=== PATIENT | female | born 1945 | race Caucasian/White ===

== ENCOUNTER 2024-01-16 07:05 | Inpatient (IN) | payer MEDICARE, SELFPAY ==
[2024-01-16] VITALS (13 sets, daily range): BP systolic 106–145; BP diastolic 53–91; PULSE 75–90; O2SAT 99; BMI 29.6; BMI 28.2
--- NOTE | 2024-01-16 05:02 | ED.GENMED ---
History of Present Illness
General
Chief Complaint: Abdominal Symptoms
Source: patient and spouse
Exam Limitations: none
Time Seen by Provider: 01/16/24 04:51
Nursing documentation reviewed up to this point in time: agreed with
Travel History
Have you traveled to any high risk areas for coronavirus over the past 14 days?: No
Have you had any contact with someone who has COVID-19?: No
Do you have any symptoms of coronavirus? Fever > 100 degrees, chills, cough, shortness of breath, sore throat, loss of taste or smell, muscle aches, or headache?: No
History of Present Illness
History of Present Illness:
79-year-old female A-fib diabetes presents with diarrhea decreased p.o. intake 10 pound weight loss has been sick for 7 to 10 days travel to [facility] was on a safari with [place]-vomited x 2, mild lower abdominal crampiness, had
a tuna sandwich and some soup yesterday and got sick she had a x 2, no one else on her trip was sick by her report, patient initially thought that her diarrhea was due to
Past History
Past History
ED Past Medical History: CHF, GERD, HTN, Hypercholesterolemia and Other
ED Past Surgical History: Cardiac, , Gynecological and Other
Social History
Tobacco: Former smoker
Alcohol: Occasional
Drug: None
Personal:
Living: with family
Family History
Family History: Diabetes
Review of Systems
Review of Systems
All Other Systems: Not applicable
Constitutional: Reports weight loss and fatigue; Denies fever
EENT: Reports no symptoms
Respiratory: Reports no symptoms
ABD/GI: Reports abdominal pain, nausea, vomiting and diarrhea; Denies bloody stools or black stools
: Reports no symptoms
Skin: Reports no symptoms
Neurological: Reports dizzy and weakness
Phy Exam
Physical Exam
Physical Exam:
Physical Exam
General: 79-year-old female nontoxic stable vital signs
Neck: Lips are dry
Heart: Regular
Lungs: no acute respiratory distress. clear bilaterally
Abdomen: Mild lower abdominal tenderness no guarding or rebound
Neuro: alert and oriented. no focal neurological deficits
Skin: no rash
Psychiatric: well kept. interactive and cooperative
Extremities: no edema.
Course
Orders/Labs/Results
Orders:
Orders
01/16/24 04:52
IV Insert/Care/Rem.- Treatment PRN
Ova & Parasites Giardia/Crypto AG [Giardia/Cryptosporidium Ag] Urgent
SHARI Source: Feces/Stool
Specimen Description:
STOOL [C difficile Antigen & Toxins] Urgent
SHARI Source: Feces/Stool
Specimen Description:
Stool Culture Urgent
SHARI Source: Feces/Stool
Specimen Description:
0.9% Sodium Chloride 1000 ml [Nss] 1,000 ml IV BOLUS
01/16/24 04:57
Complete Blood Count/With Diff Urgent
Comprehensive Metabolic Panel Urgent
01/16/24 05:37
0.9% Sodium Chloride 1000 ml [Nss] 1,000 ml IV BOLUS
Potassium Chloride [KCl] 40 meq PO NOW STA
01/16/24 05:53
Add On- LAB Urgent
Tests Added?: magnesium
Abnormal Lab Results
01/16/24
04:57
WBC 12.6 H 10^3/uL
(4.8-10.8)
MCH 31.5 H pg
(27.0-31.0)
MPV 11.0 H fL
(7.4-10.4)
Abs Immat Gran (auto) 0.2 H 10^3/uL
(0-0.05)
Absolute Neuts (auto) 9.7 H 10^3/uL
(1.4-6.5)
Absolute Monos (auto) 1.3 H 10^3/uL
(0.1-0.6)
Immature Gran % 1.6 H %
(0-0.5)
Neutrophils % 76.8 H %
(42.2-75.2)
Lymphocytes % 9.5 L %
(20.5-51.1)
Monocytes % 10.0 H %
(1.7-9.3)
Potassium 3.1 L mmol/L
(3.5-5.1)
Carbon Dioxide 18 L mmol/L
(22-30)
BUN 24 H mg/dl
(7-17)
Glucose 126 H mg/dl
(70-99)
AST 37 H U/L
(14-36)
ALT 49 H U/L
(0-35)
01/16/24 04:57
01/16/24 04:57
Vital Signs
Initial and Last Documented VS:
Initial Vital Signs
Temp Pulse Resp BP Pulse Ox
97.7 F 90 22 145/76 94
01/16/24 04:40 01/16/24 04:40 01/16/24 04:40 01/16/24 04:40 01/16/24 04:40
Last Documented Vital Signs
Temp Pulse Resp BP Pulse Ox
97.7 F 90 22 123/91 95
01/16/24 04:40 01/16/24 04:40 01/16/24 04:40 01/16/24 05:36 01/16/24 05:37
MDM/Problems Addressed
Differential Diagnosis Includes:
Dehydration infectious colitis traveler's diarrhea C. difficile
MDM/Problems Addressed:
Abdominal pain diarrhea weight loss
Chronic conditions affecting care: DM and Arrhythmia
Acute Exacerbation and/or Progression of Chronic Illness: DM and Arrhythmia
*Pulse Oximetry
Patient hypoxic: no
*Critical Care Note
Total Time (30-74mins, 75-104mins- exclusive of procedures): Not Applicable
Update Note
Update Note:
5:45 AM, patient clinically dehydrated confirm with labs, has had greater than 10 pound weight loss, foreign travel elderly with multiple medical conditions of will hydrate low threshold to admit due above
ED Attending Note
-
Portions of this chart may have been created with voice recognition software.� Occasional wrong word or��sound alike� substitutions may have occurred due to the inherent limitations of voice recognition software.
Discharge Plan
Departure
Patient Disposition: Admit
Date of Disposition: 01/16/24
Time of Disposition: 05:55
Admit to: Med/Surg
Presentation/result/management discussed w/ accepting MD/DO: Hospitalist
Condition: Fair
Discharge Problem:
Acute dehydration, Diarrhea, travelers'
Prescriptions:
No Action
aspirin 81 MG tablet,delayed release (DR/EC)
81 mg PO DAILY
atorvastatin 40 MG tablet
40 mg PO QPM
loteprednol etabonate [Lotemax] 0.5 % drops,suspension
1 drp RIGHT EYE BID
Patient Comments:
multivitamin with folic acid [Tab-A-Brijesh] 1 TABLET tablet
1 tab PO DAILY
hydrocodone-acetaminophen 1 EACH tablet
1 tab PO HSPRN PRN (Reason: sleep)
Patient Comments:
patient lemon picker on 05/17/21 #10
melatonin 3 MG tablet
3 mg PO HSPRN PRN (Reason: sleep)
naproxen sodium [Aleve] 220 MG tablet
220 mg PO BIDPRN PRN (Reason: left arm pain)
zolpidem 5 MG tablet
5 mg PO HSPRN PRN (Reason: sleep)
Patient Comments:
patient lemon picker on 05/18/21 #30
polyvinyl alcohol-povidon(PF) [Refresh Classic (PF)] 10 DROPS dropperette
1 drops BOTH EYES QIDPRN PRN (Reason: dryness)
cholecalciferol (vitamin D3) 1,000 UNITS tablet
1,000 units PO DAILY
Lactobac 2-Bifido 1-S. therm [High Potency Probiotic] 1 CAP capsule
1 cap PO DAILY
[employer]
1 cap PO DAILY
furosemide 40 MG tablet
40 mg PO DAILY 0RF
acetaminophen 325 MG tablet
650 mg PO Q4HPRN PRN (Reason: mild pain,headache,temp >101F ) 0RF
amiodarone [Pacerone] 200 MG tablet
200 mg PO DAILY 0RF
potassium chloride [Klor-Con M20] 20 MEQ tablet,ER particles/crystals
40 meq PO DAILY 0RF
pantoprazole 40 MG tablet,delayed release (DR/EC)
40 mg PO DAILY 0RF
metoprolol tartrate 12.5 MG tablet
12.5 mg PO BID 0RF
apixaban [Eliquis] 5 MG tablet
5 mg PO BID 0RF
Rx Instructions:
start on 07/02/21
dapagliflozin propanediol [Farxiga] 10 MG tablet
10 mg PO DAILY 0RF
oxycodone 5 MG tablet
5 mg PO Q6HPRN PRN (Reason: pain) Qty: 24 0RF
Referrals:
John Hollis MD [Family Provider] -
Interventions
Interventions:
*Risk Screen - Suicide Last Done: 01/16/24 04:40
*General Assessment Last Done: 01/16/24 04:40
*Neglect/Abuse Screening Last Done: 01/16/24 04:40
ED- Fall Risk Assessment Last Done: 01/16/24 04:40
*ED COVID-19 Vaccine History Last Done: 01/16/24 04:40
NA-Peukeu-Zoebsedeua Assessment Last Done: 01/16/24 05:22
Discharge Date and Time
Print Language: ROMANIAN
[2024-01-16] MEDS: NSS 1000 IV ×2 (05:12→05:44)
[2024-01-16 05:34] LABS: ALT (SGPT) 49 U/L (0-35); AST (SGOT) 37 U/L (14-36); Albumin 4.8 g/dl (3.5-5.0); Alkaline Phosphatase 89 U/L (38-126); Blood Urea Nitrogen 24 mg/dl (7-17); Calcium 10.2 mg/dl (8.4-10.2); Carbon Dioxide 18 mmol/L (22-30); Chloride 107 mmol/L (98-107); Estimated Creatinine Clearance 57 ml/min; Glucose 126 mg/dl (70-99); Potassium 3.1 mmol/L (3.5-5.1); Sodium 140 mmol/L (135-145); Total Bilirubin 0.8 mg/dl (0.2-1.3); Total Protein 7.6 g/dl (6.3-8.2); eGFR > 60.00
[2024-01-16 05:37] LABS: % Basophils 0.6 % (0-2); % Eosinophils 1.5 % (0-6); % Immature Granulocytes 1.6 % (0-0.5); % Lymphocytes 9.5 % (20.5-51.1); % Neutrophils 76.8 % (42.2-75.2); Absolute Basophils 0.1 10^3/uL (0-0.2); Absolute Eosinophils 0.2 10^3/uL (0-0.7); Absolute Immature Granulocytes 0.2 10^3/uL (0-0.05); Absolute Lymphocytes 1.2 10^3/uL (1.2-3.4); Absolute Monocytes 1.3 10^3/uL (0.1-0.6); Absolute Neutrophils 9.7 10^3/uL (1.4-6.5); Hematocrit 43.8 % (37.0-47.0); Hemoglobin 14.7 g/dL (12.0-16.0); Mean Corp Hgb Conc. 33.6 g/dL (33.0-37.0); Mean Corpuscular Hgb 31.5 pg (27.0-31.0); Nucleated Red Blood Cells % 0 %; Platelet Count 203 10^3/uL (130-400); Red Blood Cell Count 4.66 10^6/uL (4.20-5.40); Red Cell Dist. Width 14.2 % (11.5-14.5); White Blood Cell Count 12.6 10^3/uL (4.8-10.8)
[2024-01-16] MEDS: KCL 40 MEQ PO (05:45)
[2024-01-16 06:32] LABS: Magnesium 1.9 mg/dl (1.6-2.3)
--- NOTE | 2024-01-16 06:41 | HPS.HSE ---
Family Physician
-
Family Physician: John Hollis
Chief Complaint
-
Diarrhea
History of Present Illness
Patient is a 79y F with PMH significant for PA-Fib, valvular heart disease and DM-II who presents to ED complaining of diarrhea x several days. History obtained from patient and her at the bedside. Patient and her family recently
traveled to [facility] for vacation. Patient was seen by her PCP prior to the trip and was prescribed malaria prophylaxis (she cannot recall which agent). She states that she has had her hepatitis vaccinations, but has not had typhoid vaccination.
They flew to [facility] on 01/05/24 and spent a few days in [place]. Patient notes that she started her malaria medication in [facility] and - realizing that she should have started at least a day sooner - she took a 'double dose' on her first
day.
On January 07 they left for safari at a private reserve in [facility]. Patient states that she developed loose stools on January 09. Her symptoms were relatively mild initially and did not severely impact their trip.
She noted loose, brown, non-bloody bowel movements. No abdominal pain. No fevers / chills. No N/V. She did have relatively poor appetite.
No other members of her family (6 in total were present) developed any similar GI symptoms.
Patient wondered if her symptoms might be due to the malaria medication, and she stopped taking this 2-3 days ago.
They then traveled to [facility] for the last few days of their trip and returned home to [facility] in the AM of 01/15/24.
Patient had no issues on the 15 hour flight home and felt fairly well for much of the day on Monday.
Last evening, she again developed loose / watery stools. She now had crampy lower abdominal pain and N/V which she had not experienced prior.
Patient presented to the ED for further evaluation and treatment.
Medical History
Past Medical History
Past Medical History: Reports Other
Additional Past Medical History:
Valvular Heart Disease
Paroxysmal Atrial Fibrillation (noted after MVR)
AV Block (after MVR)
DM-II
DJD
GERD
Past Surgical History: Reports Other
Additional Past Surgical History:
BioAVR
BioMVR (secondary to papillary tendon rupture / acute pulm edema)
PPM Placement
Impella device placement / removal
Left TKA
Fibroidectomy
x 2
Hernia Repair x 2
Social History
Tobacco: Former Smoker
Alcohol: Occasional
Personal:
Living: With Family
Family History
Family History: Not pertinent
Allergies / Home Medications
Allergies reflects when Allergies were last updated in [facility].
Home Medications with original date entered in [facility]
Allergy/Medication List:
Allergies
Allergy/AdvReac Type Severity Reaction Status Date / Time
bacitracin Allergy RASH Verified 01/16/24 04:39
[From Neosporin AROUND AREA
([id number])]
neomycin Allergy RASH Verified 01/16/24 04:39
[From Neosporin AROUND AREA
([id number])]
polymyxin B Allergy RASH Verified 01/16/24 04:39
[From Neosporin AROUND AREA
([id number])]
Home Medications
Patient cannot recall current home medication regimen.
List in [facility] is not similar to list in External Summary.
External Summary has multiple similar agents.
Will need to confirm / clarify with pharmacy.
If medication reconciliation has not been performed, why?: Medication List N/A (Patient cannot recall.)
Review of Systems
-
History Source: Patient
A 12 point ROS was completed and negative except as noted: Yes
Constitutional: Reports Fatigue; Denies Fever or Chills
EENT: Denies Sore Throat
Respiratory: Denies Cough or Trouble Breathing
Cardiac: Reports Chest Pain; Denies Diaphoresis or Palpitations
Abdomen/GI: Reports Abdominal Pain, Nausea, Vomiting, Diarrhea and Anorexia; Denies Bloody Stools or Black Stools
: Denies Dysuria, Frequency or Flank Pain
Musculoskeletal: Denies Joint Pain or Edema
Neurological: Denies Dizzy or Headache
Psych: Denies Depression or Anxiety
Physical Exam
Vital Signs
Vital Signs
Temp Pulse Resp BP Pulse Ox
97.7 F 90 22 106/54 95
01/16/24 04:40 01/16/24 04:40 01/16/24 04:40 01/16/24 06:00 01/16/24 06:01
Physical Exam
General: Other (79y F in mild distress due to fatigue / malaise.)
HEENT: Other (Dry MM. Neck supple.)
Respiratory: Clear; No Wheezes, Rales or Rhonchi
Cardiac: S1/S2, Regular Rhythm and Murmur (III/ ANA)
GI: Soft, Non Tender, Non Distended and Normal Bowel Sounds
Musculoskeletal: No Clubbing, No Cyanosis and No Edema
Neuro: AO x 3 and Nonfocal/grossly intact
Laboratory Results
-
01/16/24 04:57
01/16/24 04:57
Laboratory Results
Total Bilirubin 0.8 mg/dl (0.2-1.3) 01/16/24 04:57
AST 37 U/L (14-36) H 01/16/24 04:57
ALT 49 U/L (0-35) H 01/16/24 04:57
Alkaline Phosphatase 89 U/L (38-126) 01/16/24 04:57
Impression/Plan
-
A/P: Patient is a 79y F with PMH significant for valvular heart disease s/p replacement(s), PA-Fib abd DM-II who presents to ED complaining of diarrhea.
Traveler's Diarrhea
Hypovolemia secondary to the above
Hypokalemia secondary to the above
- Admit for further evaluation and treatment.
- ? diarrhea is med effect versus infectious etiology.
- IVF support / electrolyte replacement / etc.
- Check stool studies for pathogens, WBCs, etc.
- No other family members / contacts with similar symptoms.
- Empiric levofloxacin / metronidazole pending stool studies / clinical improvement.
- ID evaluation for additional recommendations.
- Contact precautions.
Paroxysmal Atrial Fibrillation
Paroxysmal AV Block
- Stable. Continue metoprolol with holding parameters for BP.
- s/p PPM placement.
- Continue Xarelto for stroke risk reduction.
- Monitor on telemetry.
Valvular Heart Disease
- Stable. s/p prior bioprosthetic AVR and MVR.
- Transient CHF at the time due to valvular insufficiency - no longer requiring diuretics, etc.
- Follow for any new symptoms / complaints.
DM- II
- Stable. Current medication regimen is unclear.
- ? Ozempic, Mounjaro (? both) - which may contribute to GI issues / diarrhea.
- Hold all meds for now pending reconciliation.
- Follow glucose and cover with SSI as needed.
- Update A1C.
DVT Prophylaxis: On Xarelto
Code Status: Full
--- NOTE | 2024-01-16 09:54 | W.PN.HOSP.TC ---
Today's Communication/Plan
-
await stool studies
cont IVF
replete K
Assessment / Plan
Assessment / Plan
pt is a 79 year old female
Traveler's Diarrhea with hypovolemia and hypokalemia--likely infectious (pt was in [place])--cont IVF--replete K--cont levo/flagyl and wait for stool studies--await ID input
Paroxysmal Atrial Fibrillation/Paroxysmal AV Block--Stable--Continue metoprolol with holding parameters for BP--s/p PPM placement--Continue Xarelto for stroke risk reduction.
Valvular Heart Disease--Stable. s/p prior bioprosthetic AVR and MVR--Transient CHF at the time due to valvular insufficiency - no longer requiring diuretics, etc---Follow for any new symptoms/complaints.
DM- II- -Stable--pt on Mounjaro - which may contribute to GI issues/diarrhea -Hold all meds for now--Follow glucose and cover with SSI as needed--Update A1C.
DVT Prophylaxis: On Xarelto
Code Status: Full
Anticipated Discharge: 24 - 48 hours
Subjective/Interval History
-
Date of Service: January 16, 2024
pt still having diarrhea
Objective Data
-
Labs:
Laboratory Results
01/16/24
04:57
WBC 12.6 H
Hgb 14.7
Hct 43.8
Plt Count 203
Sodium 140
Potassium 3.1 L
Chloride 107
Carbon Dioxide 18 L
BUN 24 H
Creatinine 0.8
Glucose 126 H
Calcium 10.2
Total Bilirubin 0.8
AST 37 H
ALT 49 H
Alkaline Phosphatase 89
Vital Signs:
max temp for 24 hours
01/17/22
01:04
Temp 98.6 F
Vital Signs
Temp Pulse Resp BP Pulse Ox
97.7 F 90 22 116/53 94
01/16/24 04:40 01/16/24 04:40 01/16/24 04:40 01/16/24 06:45 01/16/24 06:45
Review of Systems
-
All other systems: Reviewed and negative
Physical Exam
-
General: Well Developed, Well Nourished and No Apparent Distress
HEENT: Normocephalic and Atraumatic
Respiratory: Clear to Auscultation; Negative Wheezes or Rhonchi
Cardiac: Regular Rhythm, S1/S2 and Murmur
GI: Soft, Nontender, Nondistended and Normal Bowel Sounds
Musculoskeletal: No Clubbing, No Cyanosis, No Edema and Other (wearing compression stockings)
Neuro: Awake and Alert
--- NOTE | 2024-01-16 10:43 | CM ---
Patient seen at bedside with physician in ED. Patient also present. Patient recently traveled to [place], she is the only one that got sick. Patient states that she lives in a 2 story home with no DME, but has a cane if needed. Patient PCP is
Dr. Zepeda and she uses the [facility]. Patient is independent of ADL's and IADL's. Patient indicated that she does not anticipate any discharge planning needs.
Plan; home with no needs anticipated at this time
[2024-01-16] MEDS: LEVAQUIN 100 IV (11:00)
[2024-01-16] MEDS: KCL 270 MEQ IV (11:00)
[2024-01-16] MEDS: LR 1000 IV ×2 (11:51→18:44)
[2024-01-16] MEDS: NSS (PRESERVATIVE FREE) 10 ML IV (11:52)
[2024-01-16] MEDS: PROTONIX IV 40 MG IV (11:52)
[2024-01-16] MEDS: FLAGYL 500 MG PO (11:52)
[2024-01-16] MEDS: LOPRESSOR 12.5 MG PO ×2 (12:02→20:24)
[2024-01-16 12:51] LABS: Troponin I < 0.012 ng/ml
[2024-01-16 14:06] LABS: Glucose - Point of Care 90 mg/dl (70-99)
--- NOTE | 2024-01-16 16:16 | CON.ID ---
Consultation
-
Date/Time Consultation Requested: 01/16/2024 09:14
Date/Time Consultation Performed: 01/16/2024 1530
Requesting Provider: Dr. Whiting
Performing Provider: Dr. Saba
Reason for Consultation: Diarrhea; recent travel
Chief Complaint / Past History
History of Present Illness
Anni Henao is a 79 female being evaluated at the request of Dr. Whiting in regards to diarrhea and recent travel to [facility]. History is obtained from chart review, along with patient interview.
The patient reports that she went to [facility], arriving approximately 01/05/2024. She began to have diarrhea on approximately 01/06 just before leaving for [facility]. She reports that her bowel movements were watery in approximately 3 times a day.
She was taking Imodium, along with 'some other product' which was [id number]. She reports some nausea, but minimal vomiting. She denied any abdominal pain.
While she was on the [employer], she did use a plung pool, but it was reported as 'clean'. None of the family members that she traveled with developed similar symptoms. Diarrhea persisted when she got back to [facility]. She felt that it might be
related to her antimalarial medicine (Malarone) and thus she stopped it three days ago. Despite stopping the medicine she still has had some ongoing loose stool and she ultimately came to the hospital yesterday over concerns that there was
something else going on.
Currently she reports she is feeling better. She still has some loose stool at present, but notes only 1 episode since admission.
She denies any fevers or chills during this period in time.
Past History
Additional Past Medical History:
CHF
GERD
HTN
Dyslipidemia
Additional Past Surgical History:
AVR/MVR
x 2
Hernia repair
Left knee replacement
PPM placement
Cornea transplant
Allergy History:
bacitracin [From Neosporin ([id number])] Allergy (Verified 01/16/24 04:39)
RASH AROUND AREA
neomycin [From Neosporin ([id number])] Allergy (Verified 01/16/24 04:39)
RASH AROUND AREA
polymyxin B [From Neosporin ([id number]-[id number])] Allergy (Verified 01/16/24 04:39)
RASH AROUND AREA
Medications Reviewed: Yes
Current Antibiotics:
Levofloxacin
Metronidazole
Social History
Tobacco: Former Smoker
Alcohol: None
Drug: None
Personal:
Living: With Family
Employment: Retired
Family History
Family History: Not Pertinent
Review of Systems
Vital Signs
Temp Pulse Resp BP Pulse Ox
98 F 90 18 128/75 99
01/16/24 14:10 01/16/24 14:10 01/16/24 14:10 01/16/24 14:10 01/16/24 14:10
Physical Exam
Physical Exam
Constitutional: No Acute Distress, Comfortable and Non-toxic
Eyes: No Conjunctival Hemorrhage and Sclera Anicteric
Oral: No Thrush and No Ulcers
Cardiovascular: Regular Rate and S1/S2; Negative S3/S4 or Murmur
Pulmonary: Clear; Negative Wheezes, Rales or Rhonchi
Gastrointestinal: Soft, Non Tender, Non Distended, Normal Bowel Sounds, No Rebound and No Guarding
Extremities: Negative Edema, Cyanosis or Erythema
Neurological: Awake and Alert
Lab / Diagnostic Study Results
01/16/24 04:57
01/16/24 04:57
Abs Immat Gran (auto) 0.2 10^3/uL (0-0.05) H 01/16/24 04:57
Absolute Neuts (auto) 9.7 10^3/uL (1.4-6.5) H 01/16/24 04:57
Absolute Lymphs (auto) 1.2 10^3/uL (1.2-3.4) 01/16/24 04:57
Absolute Monos (auto) 1.3 10^3/uL (0.1-0.6) H 01/16/24 04:57
Absolute Basos (auto) 0.1 10^3/uL (0-0.2) 01/16/24 04:57
Immature Gran % 1.6 % (0-0.5) H 01/16/24 04:57
Neutrophils % 76.8 % (42.2-75.2) H 01/16/24 04:57
Lymphocytes % 9.5 % (20.5-51.1) L 01/16/24 04:57
Monocytes % 10.0 % (1.7-9.3) H 01/16/24 04:57
Eosinophils % 1.5 % (0-6) 01/16/24 04:57
Basophils % 0.6 % (0-2) 01/16/24 04:57
Microbiology Results
Micro:
01/16/24 08:58 Stool Leukocytes - Final
Feces/Stool
01/16/24 08:58 Cryptosporidium/Giardia - Final
Feces/Stool Negative for Cryptosporidium and/or Giardia Lamblia
antigens.
C. difficile GDH Antigen & Toxins - Final
Negative for toxigenic C.difficile
01/16/24 08:58 Salmonella/Shigella Culture - Pending
Feces/Stool Campylobacter Culture - Pending
Shiga Toxin Test - Pending
Assessment / Plan
Nausea/diarrhea
- Suspect secondary to antimalarial medication (Malarone)
Leukocytosis
Mild transaminitis
Recent travel to [facility] (safari)
CHF
GERD
HTN
Dyslipidemia
Recommendations:
Doubt infectious process at present.
Discontinue further Levaquin and metronidazole.
Would also discontinue further Malarone given the possibility of it being the etiology of the diarrhea. Patient will still need to be maintained on antimalarial prophylaxis, and thus will switch to once daily doxycycline.
Monitor white count and temperature curve.
[2024-01-16] MEDS: FLAGYL PO (16:35)
[2024-01-16] MEDS: VIBRAMYCIN 100 MG PO (17:31)
[2024-01-16] MEDS: XARELTO 20 MG PO (17:31)
[2024-01-16 17:34] LABS: Glucose - Point of Care 104 mg/dl (70-99)
[2024-01-16 18:11] LABS: Troponin I < 0.012 ng/ml
[2024-01-16 22:07] LABS: Glucose - Point of Care 122 mg/dl (70-99)
[2024-01-17 01:04] LABS: Troponin I < 0.012 ng/ml
[2024-01-17 01:07] LABS: ALT (SGPT) 30 U/L (0-35); AST (SGOT) 28 U/L (14-36); Albumin 2.9 g/dl (3.5-5.0); Alkaline Phosphatase 62 U/L (38-126); Blood Urea Nitrogen 10 mg/dl (7-17); Calcium 8.8 mg/dl (8.4-10.2); Carbon Dioxide 22 mmol/L (22-30); Chloride 111 mmol/L (98-107); Direct Bilirubin 0.3 mg/dl (0.0-0.4); Estimated Creatinine Clearance 75 ml/min; Glucose 106 mg/dl (70-99); Magnesium 1.6 mg/dl (1.6-2.3); Potassium 3.4 mmol/L (3.5-5.1); Sodium 139 mmol/L (135-145); Total Bilirubin 0.4 mg/dl (0.2-1.3); Total Protein 5.2 g/dl (6.3-8.2); eGFR > 60.00
[2024-01-17 01:10] LABS: Hematocrit 33.2 % (37.0-47.0); Mean Corpuscular Hgb 31.7 pg (27.0-31.0); Mean Platelet Volume 10.7 fL (7.4-10.4); Platelet Count 151 10^3/uL (130-400); Red Blood Cell Count 3.57 10^6/uL (4.20-5.40); Red Cell Dist. Width 14.5 % (11.5-14.5); White Blood Cell Count 6.6 10^3/uL (4.8-10.8)
[2024-01-17 01:16] LABS: Hemoglobin 11.3 g/dL (12.0-16.0)
[2024-01-17] MEDS: LR 1000 IV ×2 (01:53→10:00)
[2024-01-17] MEDS: KCL 20 MEQ PO (02:26)
[2024-01-17 03:06] LABS: Glucose - Point of Care 102 mg/dl (70-99)
[2024-01-17 03:15] VITALS: BP 112/64
[2024-01-17 06:00] VITALS: BMI 30.1
[2024-01-17 07:10] VITALS: BP 131/65
[2024-01-17 07:31] LABS: Glucose - Point of Care 88 mg/dl (70-99)
[2024-01-17] MEDS: PROTONIX IV 40 MG IV (10:03)
[2024-01-17] MEDS: NSS (PRESERVATIVE FREE) 10 ML IV (10:03)
[2024-01-17] MEDS: LOPRESSOR 12.5 MG PO (10:04)
--- NOTE | 2024-01-17 10:11 | W.PN.ID1 ---
Date of Service
Date of Service: January 17, 2024
Today's Communication
Continue doxycycline
Assessment / Plan
Nausea/diarrhea
- Suspect secondary to antimalarial medication (Malarone)
- improved
Leukocytosis
Mild transaminitis
Recent travel to [facility] (safari)
CHF
GERD
HTN
Dyslipidemia
Recommendations:
Continue doxycycline for an additional 13 days.
No objection to discharge from Infectious Disease standpoint.
Chief Complaint
-: Leukocytosis and Other (Diarrhea)
Subjective / Review of Systems
Patient seen and examined. Reports feeling improved today. No further diarrhea or nausea. She tolerated doxycycline without any issues last evening. All
Vital Signs / Physical Exam
Vital Signs
Vital Signs
Temp Pulse Resp BP Pulse Ox
97.7 F 72 16 131/65 99
01/17/24 07:10 01/17/24 07:10 01/17/24 07:10 01/17/24 07:10 01/17/24 07:10
Physical Exam
Constitutional: No Acute Distress, Comfortable and Non-toxic
Eyes: Sclera Anicteric
Pulmonary: Non Labored
Gastrointestinal: Non Distended
Neurological: AO x 3
Psychological: Calm
Objective Data
Lab Data
Lab Results
01/17/24 00:32
01/17/24 00:32
Estimated Creat Clear 75 ml/min 01/17/24 00:32
Total Bilirubin 0.4 mg/dl (0.2-1.3) 01/17/24 00:32
AST 28 U/L (14-36) 01/17/24 00:32
ALT 30 U/L (0-35) 01/17/24 00:32
Alkaline Phosphatase 62 U/L (38-126) 01/17/24 00:32
Most recent labs reviewed.
Micro Results:
01/16/24 08:58 Salmonella/Shigella Culture - Preliminary
Feces/Stool Culture in Progress
Campylobacter Culture - Preliminary
Culture in Progress
Shiga Toxin Test - Pending
01/16/24 08:58 Stool Leukocytes - Final
Feces/Stool
01/16/24 08:58 Cryptosporidium/Giardia - Final
Feces/Stool Negative for Cryptosporidium and/or Giardia Lamblia
antigens.
C. difficile GDH Antigen & Toxins - Final
Negative for toxigenic C.difficile
Care Review
Plan reviewed with: Physician (Hospitalist)
--- NOTE | 2024-01-17 10:57 | CM ---
Patient seen at bedside with physician. Patient calling to and would like to go home, no needs anticipated. CM reviewed IMM and signed form placed on chart. Patient to transport home. CM will continue to follow for discharge
planning needs.
Plan; home with no needs.
--- NOTE | 2024-01-17 11:25 | W.PN.HOSP.TC ---
Today's Communication/Plan
-
d/c
Assessment / Plan
Assessment / Plan
pt is a 79 year old female
Diarrhea with hypovolemia and hypokalemia--less likely infectious (pt was in [place]) but more likely med induced--stop IVF--replete K--stop levo/flagyl--apprec ID --cleared for d/c -diarrhea stopped
Paroxysmal Atrial Fibrillation/Paroxysmal AV Block--Stable--Continue metoprolol with holding parameters for BP--s/p PPM placement--Continue Xarelto for stroke risk reduction.
Valvular Heart Disease--Stable. s/p prior bioprosthetic AVR and MVR--Transient CHF at the time due to valvular insufficiency - no longer requiring diuretics, etc---Follow for any new symptoms/complaints.
DM- II- -Stable--pt on Mounjaro - which may contribute to GI issues/diarrhea -Hold all meds for now--Follow glucose and cover with SSI as needed--Update A1C.
DVT Prophylaxis: On Xarelto
Code Status: Full
Anticipated Discharge: Today
Subjective/Interval History
-
Date of Service: January 17, 2024
pt ready for d/c
Objective Data
-
Labs:
Laboratory Results
01/17/24
00:32
WBC 6.6
Hgb 11.3 L D
Hct 33.2 L
Plt Count 151 D
Sodium 139
Potassium 3.4 L
Chloride 111 H
Carbon Dioxide 22
BUN 10
Creatinine 0.5 L
Glucose 106 H
Calcium 8.8
Total Bilirubin 0.4
AST 28
ALT 30
Alkaline Phosphatase 62
Vital Signs:
max temp for 24 hours
01/17/24
03:15
Temp 98.1 F
Vital Signs
Temp Pulse Resp BP Pulse Ox
97.7 F 72 16 131/65 98
01/17/24 07:10 01/17/24 10:04 01/17/24 07:10 01/17/24 10:04 01/17/24 08:00
I&O
01/16/24 01/17/24 01/18/24
06:59 06:59 06:59
Intake Total 2700 / 2700
Balance 2700 / 2700
Review of Systems
-
All other systems: Reviewed and negative
Physical Exam
-
General: Well Developed, Well Nourished and No Apparent Distress
HEENT: Normocephalic and Atraumatic
Respiratory: Clear to Auscultation; Negative Wheezes or Rhonchi
Cardiac: Regular Rhythm and S1/S2; Negative Murmur
GI: Soft, Nontender, Nondistended and Normal Bowel Sounds
Musculoskeletal: No Clubbing, No Cyanosis and No Edema
Neuro: Awake
[2024-01-17 11:32] LABS: Glucose - Point of Care 148 mg/dl (70-99)
--- NOTE | 2024-01-18 06:52 | W.DCSUMMARY ---
Discharge Summary
Discharge Data
Date of Admission: 01/16/24
Date of Discharge: 01/17/24
-
Pending Results: Yes
Additional Pending Results:
Final stool studies for Salmonella/Shigella/Campylobacter/Shiga toxin
Hospital Course
Primary care physician : John Hollis
Principal Discharge diagnosis : Diarrhea with hypovolemia and hypokalemia
Chronic Discharge diagnosis : Paroxysmal atrial fibrillation/paroxysmal AV block, valvular heart disease, type 2 diabetes mellitus
Hospital Course : Patient was a 79-year-old female with a history of for paroxysmal atrial fibrillation and valvular heart disease and diabetes who presented complaining of diarrhea for several days. Patient and her family recently traveled to
[facility] for vacation and the patient was placed on malaria prophylaxis during that timeframe. She did have her hepatitis vaccination but not typhoid vaccination. Patient flew to [facility] on January 05, 2024 and spent some time in [facility]. She
noted that her malaria medication was started at that time, however, she should have started a day sooner so she took a 'double dose'. She noted loose brown nonbloody bowel movements which started on January 10, 2024. Patient denied any fevers or
chills. Patient thought it might be due to the malaria medication and she stopped taking that 2 to 3 days prior to admission. She returned home on January 15, 2024. Patient was admitted.
Problem #1: Diarrhea with hypovolemia and hypokalemia. Patient was given IV fluids and potassium was repleted. She was started on Levaquin and Flagyl and seen in consultation by ID. C. difficile, norovirus, Giardia, Cryptosporidium were all
negative. This was felt to be due to to the malaria medication as opposed to infectious. Antibiotics were changed to doxycycline to complete 13-day course. Patient has been cleared for discharge from ID standpoint. Diarrhea has stopped.
Problem #2: All other medical issues. These include Paroxysmal atrial fibrillation/paroxysmal AV block, valvular heart disease, type 2 diabetes mellitus. These medical issues were stable during her hospitalization. Medications were continued as
able.
Patient is stable for discharge home at this time. If there are any questions regarding this dictation or her hospital stay, please not hesitate to call. Our office number is [phone].
Discharge Plan
-
Patient Disposition: Home (Routine Discharge)
Discharge Diagnosis/Procedures: Diarrhea with hypovolemia and hypokalemia, paroxysmal atrial fibrillation with AV block, valvular heart disease, type 2 diabetes mellitus
Condition: Good
Diet: As tolerated and Regular
Activity: As tolerated
Driving Restrictions: As prior to admission
Bathing Restrictions: None
Referrals:
John Hollis MD [Family Provider] - in less than 1 week
Arias Saba DO [Active] - (For pre-travel counseling before your next trip.)
Prescriptions:
New
doxycycline hyclate 100 mg Capsule
100 mg PO Q24H Qty: 26 0RF
Continued
atorvastatin 40 MG tablet
40 mg PO QPM
multivitamin with folic acid [Tab-A-Brijesh] 1 TABLET tablet
1 tab PO DAILY
cholecalciferol (vitamin D3) 1,000 UNITS tablet
1,000 units PO DAILY
calcium carbonate 500 mg calcium (1,250 mg) Tablet
500 mg PO DAILY
Sleep Aid (doxylamine) 25 mg Tablet
25 mg PO HS
ezetimibe [Zetia] 10 mg Tablet
10 mg PO QPM
omega-3 fatty acids Capsule
1,000 mg PO DAILY
Xarelto 20 mg Tablet
20 mg PO DAILY
loteprednol etabonate [Lotemax] 0.5 % Drops,Gel
1 drp RIGHT EYE BID
[employer] 40-10-5-3.3 mg Tablet
1 tab PO DAILY
Mounjaro 5 mg/0.5 mL Pen Injector
5 mg SC SA
metoprolol tartrate 12.5 MG tablet
12.5 mg PO BID
Discharge Orders:
Discharge Patient (As Directed); Ordered 01/17/24
Ordered By: Kat Amador
Discharge Date and Time
Discharge Date/Time: 01/17/24 13:07
Print Language: LAO
== END 2024-01-17 13:07 | disposition home or self-care (01) | DRG 392 ==
LOC: 2 NORTH 07:05
PROVIDERS: ADMITTING PHYSICIAN Hospitalist; ATTENDING PHYSICIAN Internal Medicine; EMERGENCY PHYSICIAN Emergency Medicine; FAMILY PHYSICIAN Family Medicine; OTHER PHYSICIAN Internal Medicine Infectious Disease
DX: R19.7 Diarrhea, unspecified (principal); E86.1 Hypovolemia; Z87.891 Personal history of nicotine dependence; E87.6 Hypokalemia; I44.30 Unspecified atrioventricular block; I48.0 Paroxysmal atrial fibrillation; I50.9 Heart failure, unspecified; I11.0 Hypertensive heart disease with heart failure; E11.9 Type 2 diabetes mellitus without complications; K21.9 Gastro-esophageal reflux disease without esophagitis; Z79.01 Long term (current) use of anticoagulants; T37.2X5A Adverse effect of antimalarials and drugs acting on other blood protozoa, initial encounter
CPT/HCPCS: 80053; 82248; 82962; 83036; 83735; 84484; 85025; 85027; 87045; 87046; 87324; 87328; 87329; 87427; 87449; 89055; 93005; 96360; 97162; 99285

== ENCOUNTER → 2024-01-24 09:51 | Outpatient (REF) | payer MEDICARE, SELFPAY ==
[2024-01-24 10:54] LABS: Hematocrit 39.7 % (37.0-47.0); Hemoglobin 12.9 g/dL (12.0-16.0)
[2024-01-24 11:14] LABS: ALT (SGPT) 58 U/L (0-35); AST (SGOT) 38 U/L (14-36); Alkaline Phosphatase 70 U/L (38-126); Blood Urea Nitrogen 19 mg/dl (7-17); Calcium 9.3 mg/dl (8.4-10.2); Carbon Dioxide 30 mmol/L (22-30); Chloride 104 mmol/L (98-107); Glucose 116 mg/dl (70-99); Potassium 4.4 mmol/L (3.5-5.1); Sodium 138 mmol/L (135-145); Total Bilirubin 0.5 mg/dl (0.2-1.3); Total Protein 6.5 g/dl (6.3-8.2); eGFR > 60.00
[2024-01-24 11:20] LABS: NT-proBNP 416 pg/ml
== END ==
LOC: REG 09:51
PROVIDERS: ATTENDING PHYSICIAN Family Medicine
DX: R06.09 Other forms of dyspnea (principal)
CPT/HCPCS: 36415; 71046; 80053; 83880; 85014; 85018

== ENCOUNTER → 2024-04-23 12:58 | Outpatient (REF) | payer MEDICARE, SELFPAY | LOC: HWRCS 12:58 | PROVIDERS: ATTENDING PHYSICIAN Internal Medicine Cardiovascular Disease; FAMILY PHYSICIAN Family Medicine | DX: I35.0 Nonrheumatic aortic (valve) stenosis (principal) | CPT/HCPCS: 93306 ==

== ENCOUNTER → 2024-05-22 14:00 | Outpatient (REF) | payer MEDICARE, SELFPAY | LOC: HWWDC 14:00 | PROVIDERS: ATTENDING PHYSICIAN Obstetrics & Gynecology; FAMILY PHYSICIAN Family Medicine | DX: Z12.31 Encounter for screening mammogram for malignant neoplasm of breast (principal) | CPT/HCPCS: 77063; 77067 ==

== ENCOUNTER 2024-08-28 10:40 | Emergency (ER) | payer MEDICARE, SELFPAY ==
[2024-08-28 10:43] VITALS: BP 139/74
[2024-08-28] MEDS: NSS 1000 IV (12:24)
--- NOTE | 2024-08-28 12:25 | ED.GENMED ---
History of Present Illness
General
Chief Complaint: Abdominal Symptoms
Source: patient
Exam Limitations: none
Time Seen by Provider: 08/28/24 11:33
Nursing documentation reviewed up to this point in time: agreed with
History of Present Illness
History of Present Illness:
79 y/o with h/o valve replacement and PAF on xarelto, niddm,
previous c sections and hernia repair
her eiwth 4 days of nausea/vomiting
started with just feeling not well and nauseated with lack of appetite 4 days ago and progressed to vomiting, the worse was overnight after the first day of symptoms with 4-5 times large volume
the following day she really also didn't have appetite but didn't vomit unti lthe evening an dvomited a few times total
she called her PCP who recommended that if sypmtoms continued she could come to the ER
she has not had diarrhea, constipation
but her abdomen feel sbloated
she was able to tolerate some tea and some eggs yesterday but today really doesn't have appetite
she has had intermittent generalized abd pain
no fever/chills
no h/o bowel obstructions previously
Past History
Past History
ED Past Medical History: CHF, GERD, HTN, Hypercholesterolemia and Other
ED Past Surgical History: Cardiac, , Gynecological and Other
Social History
Tobacco: Former smoker
Alcohol: Occasional
Drug: None
Personal:
Living: with family
Family History
Family History: Diabetes
Review of Systems
Review of Systems
Allergies reviewed?: Yes
All Other Systems: Not applicable
Phy Exam
Physical Exam
Physical Exam:
GENERAL: Alert , in no apparent distress
EYE: pupils equal and reactive
NECK: Supple
ENT: o/p clr, mmm.
CARDIAC: Regular rate and rhythm .
LUNGS: Clear breath sounds bilaterally, no acute respiratory distress, no wheezes/rales/rhonchi
ABDOMEN: distended, soft, minimally tender, high pitched bowel sounds;, no r/g, no cvat,
NEUROLOGICAL: Alert and oriented, no focal neuro deficits
SKIN: Warm and dry, skin intact.
MUSCULOSKELETAL: No edema, well perfused. neg juliette's sign
PSYCH: Normal and appropriate interaction.
Course
Orders/Labs/Results
Orders:
Orders
08/28/24 12:16
0.9% Sodium Chloride 1000 ml [Nss] 1,000 ml IV BOLUS
08/28/24 12:17
CT Abd/Pel (IV only)-DH only Urgent
Comment:
Reason For Exam: abd bloating, vomiting, concern for SBO
08/28/24 12:23
Complete Blood Count/With Diff Urgent
08/28/24 14:14
Comprehensive Metabolic Panel Urgent
Lipase Urgent
08/28/24 16:25
Urinalysis Reflex To Culture Urgent
Date Specimen was Collected: 08/28/24
Time Specimen was Collected: 16:24
Urine Microscopic Reflex Cult Urgent
Abnormal Lab Results
08/28/24 08/28/24 08/28/24
12:23 14:14 16:25
WBC 11.6 H 10^3/uL
(4.8-10.8)
MCH 32.8 H pg
(27.0-31.0)
MPV 10.8 H fL
(7.4-10.4)
Absolute Neuts (auto) 8.4 H 10^3/uL
(1.4-6.5)
Absolute Lymphs (auto) 1.1 L 10^3/uL
(1.2-3.4)
Absolute Monos (auto) 1.8 H 10^3/uL
(0.1-0.6)
Lymphocytes % 9.2 L %
(20.5-51.1)
Monocytes % 15.5 H %
(1.7-9.3)
Potassium 3.4 L mmol/L
(3.5-5.1)
BUN 27 H mg/dl
(7-17)
Glucose 100 H mg/dl
(70-99)
Calcium 7.2 L mg/dl
(8.4-10.2)
Total Protein 5.2 L g/dl
(6.3-8.2)
Albumin 3.1 L g/dl
(3.5-5.0)
Urine Ketones Trace A
(Negative)
Urine Bilirubin 1+ A
(Negative)
Leukocyte Esterase Rfl Trace A
(Negative)
Urine Bacteria (Reflex) Few A
(Negative)
08/28/24 12:23
08/28/24 14:14
Vital Signs
Initial and Last Documented VS:
Initial Vital Signs
Temp Pulse Resp BP Pulse Ox
98.3 F 98 18 139/74 95
08/28/24 10:43 08/28/24 10:43 08/28/24 10:43 08/28/24 10:43 08/28/24 10:43
Last Documented Vital Signs
Temp Pulse Resp BP Pulse Ox
98.3 F 94 18 130/76 99
08/28/24 10:43 08/28/24 17:46 08/28/24 17:46 08/28/24 17:46 08/28/24 17:46
MDM/Problems Addressed
Differential Diagnosis Includes:
ileus, sbo, enteritis
MDM/Problems Addressed:
79 y/o M
previous remote abd surgeries
valve replacement
paf on xarelto
abd pain, distension vomiting for a few days
no fever,
still having normal bowel movements
feels lack of appetite
nauseated with eating but was able to eat a little last night
one xam upper abdominal distension mildl
no significant tendenress
hyepractive bowel sounds
wbc minimally elevated
bun up, c/w pt looking dry
ct shows mild dilated loops of SB but no obvious obstruction, could be enteritis
shared medical decision making, also d/w ed attending dr. yan
ptdid trial po fuilds and toelrated well
ok to trial home and return precautions given
*Critical Care Note
Total Time (30-74mins, 75-104mins- exclusive of procedures): Not Applicable
ED Attending Note
-
Portions of this chart may have been created with voice recognition software.� Occasional wrong word or��sound alike� substitutions may have occurred due to the inherent limitations of voice recognition software.
Discharge Plan
Departure
Patient Disposition: Home (Routine Discharge)
Date of Disposition: 08/28/24
Time of Disposition: 17:46
Patient with high blood pressure during this ER visit?: No
Condition: Fair
Covid-19: Not Applicable
Discharge Problem:
Enteritis
Instructions: Intestinal Pseudo-obstruction (DC)
Prescriptions:
New
ondansetron 4 mg tablet,disintegrating
4 mg PO Q8H PRN (Reason: nausea and vomiting) 3 Days Qty: 5 0RF
No Action
atorvastatin 40 MG tablet
40 mg PO QPM
multivitamin with folic acid [Tab-A-Brijesh] 1 TABLET tablet
1 tab PO DAILY
cholecalciferol (vitamin D3) 1,000 UNITS tablet
1,000 units PO DAILY
calcium carbonate 500 mg calcium (1,250 mg) Tablet
500 mg PO DAILY
Sleep Aid (doxylamine) 25 mg Tablet
25 mg PO HS
ezetimibe [Zetia] 10 mg Tablet
10 mg PO QPM
omega-3 fatty acids Capsule
1,000 mg PO DAILY
Xarelto 20 mg Tablet
20 mg PO DAILY
loteprednol etabonate [Lotemax] 0.5 % Drops,Gel
1 drp RIGHT EYE BID
[employer] 40-10-5-3.3 mg Tablet
1 tab PO DAILY
Mounjaro 5 mg/0.5 mL Pen Injector
5 mg SC SA
metoprolol tartrate 12.5 MG tablet
12.5 mg PO BID
doxycycline hyclate 100 mg Capsule
100 mg PO Q24H Qty: 26 0RF
Referrals:
John Hollis MD [Family Provider] - Follow up in 2-3 days
Activity Restrictions/Additional Instructions:
YOUR BOWELS WERE SLIGHTLY DILATED BUT NOT CONSISTENT WITH A BOWEL OBSTRUCTION
YOU COULD HAVE A STOMACH VIRUS CAUSING BLOATING
OR THIS COULD BE A MILD ILEUS (PAUSE OFTHE BOWELS)
TRY SMALL DOSES OF FLUIDS/FOOD TO NOT OVERLOAD YOUR BELLY
USE ZOFRAN EVERY 8 HOURS NEEDED
RETURN FOR: REPEATED VOMITING, WORSE PAIN, WORSE DISTENSION OF YOUR ABDOMEN, FEVER OR ANYC ONCERN.
Interventions
Interventions:
*Risk Screen - Suicide Last Done: 08/28/24 10:43
*General Assessment Last Done: 08/28/24 10:43
ED- Fall Risk Assessment Last Done: 08/28/24 11:16
*ED COVID-19 Vaccine History Last Done: 08/28/24 10:43
*Nursing Disposition Last Done: 08/28/24 17:55
JW-Qzjgut-Yspaxedlyw Assessment Last Done: 08/28/24 11:16
Discharge Date and Time
Discharge Date/Time: 08/28/24 18:23
Print Language: MAURITANIAN
[2024-08-28 12:44] LABS: % Basophils 0.3 % (0-2); % Eosinophils 2.3 % (0-6); % Immature Granulocytes 0.3 % (0-0.5); % Lymphocytes 9.2 % (20.5-51.1); % Monocytes 15.5 % (1.7-9.3); % Neutrophils 72.4 % (42.2-75.2); Absolute Eosinophils 0.3 10^3/uL (0-0.7); Absolute Lymphocytes 1.1 10^3/uL (1.2-3.4); Absolute Monocytes 1.8 10^3/uL (0.1-0.6); Absolute Neutrophils 8.4 10^3/uL (1.4-6.5); Hematocrit 40.7 % (37.0-47.0); Hemoglobin 14.1 g/dL (12.0-16.0); Mean Corp Hgb Conc. 34.6 g/dL (33.0-37.0); Mean Corpuscular Hgb 32.8 pg (27.0-31.0); Mean Corpuscular Volume 94.7 fL (81.0-99.0); Mean Platelet Volume 10.8 fL (7.4-10.4); Nucleated Red Blood Cells % 0 %; Platelet Count 145 10^3/uL (130-400); Red Cell Dist. Width 13.6 % (11.5-14.5); White Blood Cell Count 11.6 10^3/uL (4.8-10.8)
[2024-08-28 13:05] VITALS: BP 130/72
[2024-08-28 14:43] LABS: ALT (SGPT) 26 U/L (0-35); AST (SGOT) 25 U/L (14-36); Albumin 3.1 g/dl (3.5-5.0); Alkaline Phosphatase 61 U/L (38-126); Blood Urea Nitrogen 27 mg/dl (7-17); Calcium 7.2 mg/dl (8.4-10.2); Carbon Dioxide 23 mmol/L (22-30); Chloride 107 mmol/L (98-107); Glucose 100 mg/dl (70-99); Lipase 101 U/L (23-300); Potassium 3.4 mmol/L (3.5-5.1); Sodium 138 mmol/L (135-145); Total Bilirubin 0.7 mg/dl (0.2-1.3); Total Protein 5.2 g/dl (6.3-8.2); eGFR > 60.00
[2024-08-28 15:14] VITALS: BP 132/74
[2024-08-28 16:35] LABS: Urine Albumin Trace (Neg - Trace); Urine Bilirubin 1+ (Negative); Urine Character Clear (Clear); Urine Color Amber; Urine Glucose Negative (Negative); Urine Ketone Trace (Negative); Urine Leukocyte Trace (Negative); Urine Nitrite Negative (Negative); Urine Occult Blood Negative (Negative); Urine Urobilinogen Negative (Neg - 1+)
[2024-08-28 16:59] LABS: Urine Hyaline Cast >15 /LPF (0-2); Urine Squamous Cell 26-30 /LPF (Few)
[2024-08-28 17:00] LABS: Urine Bacteria Few (Negative); Urine Mucus Many; Urine White Cell 0-2 /HPF (0-5)
[2024-08-28 17:46] VITALS: BP 130/76
== END 2024-08-28 18:23 | disposition home or self-care (01) ==
LOC: EMR 10:40
PROVIDERS: Physician Assistant; EMERGENCY PHYSICIAN Emergency Medicine; FAMILY PHYSICIAN Family Medicine
DX: K52.9 Noninfective gastroenteritis and colitis, unspecified (principal); I48.0 Paroxysmal atrial fibrillation; E11.9 Type 2 diabetes mellitus without complications; E78.00 Pure hypercholesterolemia, unspecified; I11.0 Hypertensive heart disease with heart failure; I50.9 Heart failure, unspecified; K21.9 Gastro-esophageal reflux disease without esophagitis; Z79.01 Long term (current) use of anticoagulants; Z87.891 Personal history of nicotine dependence; Z95.2 Presence of prosthetic heart valve
CPT/HCPCS: 96360; 99284; 74177; 80053; 81003; 81015; 83690; 85025; Q9967

== ENCOUNTER → 2025-05-08 11:00 | Outpatient (REF) | payer MEDICARE, SELFPAY | LOC: RCS 11:00 | PROVIDERS: ATTENDING PHYSICIAN Internal Medicine Cardiovascular Disease; FAMILY PHYSICIAN Family Medicine | DX: I34.0 Nonrheumatic mitral (valve) insufficiency (principal); I48.0 Paroxysmal atrial fibrillation; I07.1 Rheumatic tricuspid insufficiency | CPT/HCPCS: 93306 ==

== ENCOUNTER → 2025-05-26 07:21 | Outpatient (REF) | payer MEDICARE, SELFPAY | LOC: RCS 07:21 | PROVIDERS: ATTENDING PHYSICIAN Internal Medicine Cardiovascular Disease; FAMILY PHYSICIAN Family Medicine | DX: I35.0 Nonrheumatic aortic (valve) stenosis (principal) | CPT/HCPCS: 93017 ==

== ENCOUNTER → 2025-06-17 09:11 | Outpatient (REF) | payer MEDICARE, SELFPAY | LOC: RAD 09:11 | PROVIDERS: ATTENDING PHYSICIAN Internal Medicine Cardiovascular Disease; FAMILY PHYSICIAN Family Medicine | DX: I35.0 Nonrheumatic aortic (valve) stenosis (principal); Z98.890 Other specified postprocedural states; I48.0 Paroxysmal atrial fibrillation; I44.0 Atrioventricular block, first degree; Z95.2 Presence of prosthetic heart valve; Z95.0 Presence of cardiac pacemaker | CPT/HCPCS: 74174; 75572; Q9967 ==

== ENCOUNTER 2025-06-20 08:24 | Day surgery (SDC) | payer MEDICARE, SELFPAY ==
[2025-06-13 12:51] VITALS: BMI 29.3
[2025-06-13 14:00] LABS: Hematocrit 40.1 % (37.0-47.0); Hemoglobin 13.0 g/dL (12.0-16.0); Mean Corp Hgb Conc. 32.4 g/dL (33.0-37.0); Mean Corpuscular Volume 97.3 fL (81.0-99.0); Nucleated Red Blood Cells % 0 %; Platelet Count 153 10^3/uL (130-400); Red Cell Dist. Width 14.0 % (11.5-14.5)
[2025-06-13 14:53] LABS: ALT (SGPT) 24 U/L (0-35); AST (SGOT) 29 U/L (14-36); Albumin 4.3 g/dl (3.5-5.0); Alkaline Phosphatase 70 U/L (38-126); Blood Urea Nitrogen 20 mg/dl (7-17); Calcium 9.7 mg/dl (8.4-10.2); Carbon Dioxide 30 mmol/L (22-30); Chloride 106 mmol/L (98-107); Estimated Creatinine Clearance 64 ml/min; Glucose 108 mg/dl (70-99); Potassium 4.8 mmol/L (3.5-5.1); Sodium 140 mmol/L (135-145); Total Protein 6.9 g/dl (6.3-8.2); eGFR > 60.00
[2025-06-20] VITALS (9 sets, daily range): BP systolic 105–142; BP diastolic 50–92
--- NOTE | 2025-06-20 20:46 | ITS.CL.PN ---
Import/Export Clerk - Procedure Note
Procedure
Procedure Note:
CARDIAC CATHETERIZATION REPORT
Date of Procedure: 06/20/2025
Referring: Dr. Carmela Madison MD
Indication: Symptomatic severe bioprosthetic aortic valve stenosis
PROCEDURE(S)
1. right heart catheterization
2. left heart catheterization
3. coronary angiography
ACCESS
1. 6F right radial artery (closure: radial band)
2. 5F right antecubital vein (closure: manual hemostasis)
CATHETERS
1. 5F [place]-Sid
2. 6F JR4
3. 6F JL3.5
4. 6F [place]
MODERATE SEDATION: 35 minutes of moderate sedation was utilized. An independent medical collections specialist was present to assist with and help manage the patient's level of consciousness and physiologic status.
HEMODYNAMIC DATA
LV 201/15 (EDP 26) mmHg
AO 133/70 (mean 96) mmHg
RA 16 mmHg
RV 60/10 (EDP 15) mmHg
PA 55/35 (mean 42) mmHg
PCWP 28 mmHg
SaO2 96.1%
SvO2 73.6%
Hb 12.6 g/dL
Weight 75 kg
CO/CI 5.78/3.24 L/min/m2
SVR 1107 dsc*-5
PVR 1.5 Wood units
Valve Study: Mean gradient 55.9 mmHg at heart rate of 78 bpm giving a stroke-volume index of 41.5 mL/m� and a calculated valve area of 0.63 cm� (indexed valve area 0.35 cm�/m�)
CORONARY ANGIOGRAPHY
Dominance: Right
LM: Short normal vessel. Cusp isolation angiography performed in [facility] [employer] demonstrates the left main ostium to arise below the valve stent frame with minimal valve to coronary distance.
LAD: Large vessel giving rise to several small diagonal branches and wrapping around the apex. There are trivial luminal irregularities only.
LCx: Large vessel giving rise to a small OM1, large OM 2, and moderate caliber LPL branch. There are trivial luminal irregularities only.
RCA: Moderate caliber vessel giving rise to a small RPDA and 2 small RPL branches. There is mild ostial narrowing and otherwise trivial luminal irregularities only. The RCA ostium appears to arise just above the top of the valve frame.
RADIATION: dose 666 mGy; DAP 45.1 Gy*cm2; fluoroscopy time 22.2 min
CONCLUSIONS
1. Critical aortic valve stenosis with moderately elevated biventricular filling pressures, moderate postcapillary pulmonary hypertension, and normal cardiac output.
2. Minimal coronary artery disease. The left coronary artery appears to be at high risk for iatrogenic obstruction with TAVR. Options include TAVR with electrocautery mediated leaflet laceration (BASILICA procedure) versus surgical AVR (which would
be third sternotomy). Heart team discussion with take place.
Copy to: Dr. Carmela Madison MD (deputy general counsel); Dr. John Hollis MD (PCP)
Signed: Quang Arrieta MD, PhD
== END 2025-06-20 16:11 | disposition home or self-care (01) ==
LOC: CATH 08:24
PROVIDERS: ATTENDING PHYSICIAN Student in an Organized Health Care Education/Training Program; FAMILY PHYSICIAN Family Medicine; OTHER PHYSICIAN Internal Medicine Cardiovascular Disease
DX: I08.2 Rheumatic disorders of both aortic and tricuspid valves (principal); R94.39 Abnormal result of other cardiovascular function study; I08.1 Rheumatic disorders of both mitral and tricuspid valves; I27.20 Pulmonary hypertension, unspecified; E78.5 Hyperlipidemia, unspecified; I11.0 Hypertensive heart disease with heart failure; I50.32 Chronic diastolic (congestive) heart failure; I48.91 Unspecified atrial fibrillation; I44.2 Atrioventricular block, complete; I47.20 Ventricular tachycardia, unspecified; E11.9 Type 2 diabetes mellitus without complications; Z79.84 Long term (current) use of oral hypoglycemic drugs; K21.9 Gastro-esophageal reflux disease without esophagitis; K44.9 Diaphragmatic hernia without obstruction or gangrene; Z86.0100 Personal history of colon polyps, unspecified; K57.90 Diverticulosis of intestine, part unspecified, without perforation or abscess without bleeding; R42 Dizziness and giddiness; Z96.652 Presence of left artificial knee joint; M19.90 Unspecified osteoarthritis, unspecified site; M85.80 Other specified disorders of bone density and structure, unspecified site; E04.1 Nontoxic single thyroid nodule; Z72.0 Tobacco use; G47.00 Insomnia, unspecified; I45.2 Bifascicular block; I25.10 Atherosclerotic heart disease of native coronary artery without angina pectoris; Z79.01 Long term (current) use of anticoagulants; Z79.82 Long term (current) use of aspirin; Z79.899 Other long term (current) drug therapy; Z95.3 Presence of xenogenic heart valve; Z94.7 Corneal transplant status; T82.857A Stenosis of other cardiac prosthetic devices, implants and grafts, initial encounter; Z98.41 Cataract extraction status, right eye; Z98.42 Cataract extraction status, left eye; Z98.890 Other specified postprocedural states
CPT/HCPCS: 99152; 99153; 36415; 80053; 85025; 93005; 93460; C1769; C1894; Q9967

== ENCOUNTER 2025-08-16 01:19 | Inpatient (IN) | payer MEDICARE, SELFPAY ==
[2025-08-15 20:49] VITALS: BP 133/96
[2025-08-15 21:12] LABS: Hematocrit 39.7 % (37.0-47.0); Hemoglobin 12.8 g/dL (12.0-16.0); Mean Corp Hgb Conc. 32.2 g/dL (33.0-37.0); Mean Corpuscular Volume 96.8 fL (81.0-99.0); Nucleated Red Blood Cells % 0 %; Platelet Count 168 10^3/uL (130-400); Red Cell Dist. Width 14.2 % (11.5-14.5)
[2025-08-15 21:16] LABS: ALT (SGPT) 26 U/L (0-35); AST (SGOT) 26 U/L (14-36); Albumin 4.4 g/dl (3.5-5.0); Alkaline Phosphatase 72 U/L (38-126); Blood Urea Nitrogen 21 mg/dl (7-17); Calcium 9.1 mg/dl (8.4-10.2); Carbon Dioxide 27 mmol/L (22-30); Chloride 105 mmol/L (98-107); Glucose 162 mg/dl (70-99); Potassium 4.4 mmol/L (3.5-5.1); Sodium 135 mmol/L (135-145); Total Protein 7.0 g/dl (6.3-8.2); eGFR > 60.00
[2025-08-15 21:28] LABS: Troponin I 0.014 ng/ml
[2025-08-15 23:00] VITALS: BP 117/59
[2025-08-15 23:01] VITALS: BMI 29.7
--- NOTE | 2025-08-15 23:10 | EDRN ---
Pt waiting to have aortic valve replaced which is supposed to be scheduled Monday. Pt feels her breathing is getting worse 'I hate to go upstairs anymore.' Talking makes pt sob. Pt adds she has heaviness in her chest which she has been getting
every night for about 20 minutes and it would go away. Today, the chest heaviness has not gone away for 6 hours. No radiation, n/v, fever/chills/cough, abd pain, weakness. Pt feels tired.
--- NOTE | 2025-08-15 23:33 | ED.GENMED ---
History of Present Illness
General
Chief Complaint: Chest Pain
Source: patient and spouse
Time Seen by Provider: 08/15/25 23:20
History of Present Illness
History of Present Illness:
80-year-old female presents to the emergency room complaining of shortness of breath and chest pressure. Patient has known stenosis of a prosthetic aortic valve. Currently patient is being evaluated for a complex TAVR procedure. However her
symptoms have been progressing fairly rapidly. She called her automation machine operator this evening describing how short of breath she has with minimal exertion as well as how she is experiencing some chest tightness. He referred her to the emergency room for
further evaluation. At rest the patient is not terribly short of breath but becomes so with minimal exertion. She denies any fever, chills, nausea or vomiting.
Past History
Past History
ED Past Medical History: CHF, GERD, HTN, Hypercholesterolemia and Other
ED Past Surgical History: Cardiac, , Gynecological and Other
Social History
Tobacco: Former smoker
Alcohol: Occasional
Drug: None
Personal:
Living: with family
Family History
Family History: Diabetes
Phy Exam
Physical Exam
Physical Exam:
General: Awake, Alert, Oriented X3. No acute distress.
Vitals: unremarkable
Head: Atraumatic
Eyes: Pupils equal, EOMI
Throat: Airway intact, no exudates
Neck: Trachea midline
Lungs: Clear and equal b/l
Heart: Regular rate, 4 6 systolic murmur
Abd: Soft, Nontender, No pulsatile mass
Neuro: Nonfocal
Skin: Warm, dry, no rash
Extremities: pulses equal b/l, no edema
Scores
Heart Failure Risk
Heart Failure Risk Score: Yes
History of Stroke or TIA: No
History of intubation for respiratory distress: No
Heart rate on ED arrival >/= 110: No
SaO2 <90% on arrival on room air: No
HR >/=110 during 3min walk test (or too ill to perform test): Yes
ECG has acute ischemic changes: No
Urea >/=12mmol/L (BUN 33.6mg/dL): No
Serum CO2>/=35mmol/L: No
Troponin I or T elevated to [place] Level (0.4mg/dL): No
NT-proBNP >/=5,000ng/L (5,000pg/ml): Yes
HF Risk Score: 3
Admission Status: HIGH RISK 15.9% Consider SNF treatment or admission to hospital
Heart Score for Chest Pain Patients
STEMI patient?: No
History: Slightly or Non-Suspicious
ECG: Nonspecific Repolarization
Age: >/= 65 years
Risk Factors: 1 or 2 Risk Factors
Troponin: </= Normal Limit
Heart Score for Chest Pain Patients: 4
Heart Score Risk: 20.3% MACE over next 6 weeks
Course
Orders/Labs/Results
Orders:
Orders
08/15/25 20:45
Electrocardiogram (*1) Urgent
Reason for Study: Chest Pain
Cardiac Monitoring- Treatment ONCE
EKG- Treatment ONCE
08/15/25 20:55
Complete Blood Count/With Diff Urgent
Comprehensive Metabolic Panel Urgent
Troponin I Urgent
08/15/25 23:32
Furosemide [Lasix] 20 mg IV NOW STA
08/15/25 23:52
NT-proBNP Urgent
08/16/25 00:02
CR Chest - 2 Views Urgent
Reason For Exam: shortness of breath
08/16/25 01:06
Admit/Transfer Patient As Directed
Co-Sign Provider:
Level of Care: Inpatient admission
Assign to:: IVU
Physician / Group: Gary
Diagnosis: chest pain
Reason for Hospitalization: Aortic stenosis
Expected length of stay greater than two midnights?: Yes
ELOS- Estimated Length of Stay in days: 2
I certify the patient meets the requirements for IP care: Yes
08/16/25 01:08
Code Status As Directed
Resuscitation Status: Full Code
PRN Pain Medication Management As Directed
May give lesser potent ordered pain med per pt: Yes
preference::
Protocol:: Medication orders for pain may be administered in a
manner that supports deferring to patient preference
when the pt is:
- Requesting an ordered lesser potent pain medication.
Least to most potent pain medications are defined
as: acetaminophen < NSAID < tramadol < opioids
(morphine, oxycodone, hydromorphone).
- Requesting a lesser dose of the same medication IF
ORDERED.
- Requesting a less intrusive route of administration
if both routes are prescribed by the provider (PO <
IV).
Abnormal Lab Results
08/15/25
20:55
RBC 4.10 L 10^6/uL
(4.20-5.40)
MCH 31.2 H pg
(27.0-31.0)
MCHC 32.2 L g/dL
(33.0-37.0)
Absolute Neuts (auto) 7.0 H 10^3/uL
(1.4-6.5)
Absolute Monos (auto) 0.8 H 10^3/uL
(0.1-0.6)
Lymphocytes % 16.9 L %
(20.5-51.1)
BUN 21 H mg/dl
(7-17)
Glucose 162 H mg/dl
(70-99)
08/15/25 20:55
08/15/25 20:55
Vital Signs
Initial and Last Documented VS:
Initial Vital Signs
Temp Pulse Resp BP Pulse Ox
98.2 F 97 18 133/96 94
08/15/25 20:49 08/15/25 20:49 08/15/25 20:49 08/15/25 20:49 08/15/25 20:49
Last Documented Vital Signs
Temp Pulse Resp BP Pulse Ox
98.2 F 82 25 108/49 92
08/15/25 20:49 08/16/25 01:00 08/16/25 01:00 08/16/25 01:00 08/16/25 01:00
MDM/Problems Addressed
Differential Diagnosis Includes:
Progressive aortic stenosis, congestive heart failure, symptomatic anemia, NSTEMI
MDM/Problems Addressed:
Patient presents with progressive chest pain, shortness of breath. Troponins normal. EKG shows no ischemic changes. Chest x-ray consistent with heart failure. Given the severe aortic stenosis will gently diurese her with 20 mg of furosemide IV.
Patient will be mated to the ICU as requested by Dr. Yee.
*Radiology
Radiology exam reviewed: preliminary read by ED provider (CHF)
*Pulse Oximetry
SaO2: 94
Oxygen Mode of Delivery: Room air
Patient hypoxic: no
*EKG
Interpreted by ED Provider?: Yes
Heart Rate: 98
Rate: normal
Rhythm: sinus
QRS Pattern: right bundle branch block and other (Left posterior fascicular block)
Ischemia: non-specific ST changes
*Power Line Installer Interpretation
Rate: normal
Interpretation: normal
Rhythm: sinus
*Critical Care Note
Total Time (30-74mins, 75-104mins- exclusive of procedures): Not Applicable
ED Attending Note
-
Portions of this chart may have been created with voice recognition software.� Occasional wrong word or��sound alike� substitutions may have occurred due to the inherent limitations of voice recognition software.
Discharge Plan
Departure
Patient Disposition: Admit
Date of Disposition: 08/16/25
Time of Disposition: 00:39
Presentation/result/management discussed w/ accepting MD/DO: Hospitalist
Condition: Fair
Discharge Problem:
Acute congestive heart failure, Aortic stenosis
Interventions
Interventions:
*Risk Screen - Suicide Last Done: 08/15/25 20:49
*General Assessment Last Done: 08/15/25 20:49
*Neglect/Abuse Screening Last Done: 08/15/25 20:49
*ED- Fall Risk Assessment Last Done: 08/15/25 23:01
*ED COVID-19 Vaccine History Last Done: 08/15/25 23:01
*ED Influenza Vaccine History Last Done: 08/15/25 23:01
ED- Cardiac Assessment Last Done: 08/15/25 23:18
[2025-08-15] MEDS: LASIX 20 MG IV (23:59)
[2025-08-16] VITALS (10 sets, daily range): BP systolic 93–151; BP diastolic 49–85; BMI 29.1
--- NOTE | 2025-08-16 00:56 | HPS.HSE ---
Family Physician
-
Family Physician: John Hollis
Chief Complaint
-
Chest pain
History of Present Illness
This is a 80-year-old female with past medical history significant for paroxysmal atrial fibrillation, aortic valve replacement, bioprosthetic mitral valve replacement, heart block s/p ppm presents to the Emergency Department with complaints of
shortness of breath and chest pressure.
Patient is recently status post cardiac cath showing critical aortic valve stenosis with moderately elevated biventricular filling pressures and moderate postcapillary pulmonary hypertension. She had normal cardiac output. She had minimal coronary
artery disease on the left heart cath. She comes to the emergency department complaining of worsening chest pain and shortness of breath. She reports that chest tightness and shortness of breath with minimal exertion. She was referred to the
emergency department for further evaluation. She denies any shortness of breath at rest. She denies having any cough. She denies any fevers or chills. She denies any swelling of her lower extremities. She denies any palpitations.
In the emergency department she was afebrile, blood pressure was 124/60 with a pulse of 99 and she was satting 94% on room air. ECG shows a sinus rhythm at rate of 98 with known right bundle and left anterior fascicular blocks. No acute ischemic
changes otherwise. Troponin was 0.014. BNP was elevated at 6390. Chest x-ray shows small right-sided pleural effusion.
CBC was unremarkable stop electrolytes BUN/creatinine were all in normal range.
Medical History
Past Medical History
Past Medical History: Reports Other
Additional Past Medical History:
Valvular Heart Disease
Paroxysmal Atrial Fibrillation (noted after MVR)
AV Block (after MVR)
DM-II
DJD
GERD
Past Surgical History: Reports Other
Additional Past Surgical History:
BioAVR
BioMVR (secondary to papillary tendon rupture / acute pulm edema)
PPM Placement
Impella device placement / removal
Left TKA
Fibroidectomy
x 2
Hernia Repair x 2
Social History
Tobacco: Former Smoker
Alcohol: Occasional
Personal:
Living: With Family
Family History
Family History: Not pertinent
Allergies / Home Medications
Allergies reflects when Allergies were last updated in [employer].
Home Medications with original date entered in [employer]
Allergy/Medication List:
Allergies
Allergy/AdvReac Type Severity Reaction Status Date / Time
No Known Allergies Allergy Unverified 08/15/25 23:03
Home Medications
atorvastatin 40 mg tablet 40 mg PO QPM High cholesterol 01/18/18
cholecalciferol (vitamin D3) 25 mcg (1,000 unit) tablet 1,000 units PO DAILY Supplement 06/22/21
cartilage 40 mg-collagen II 10 mg-boron 5 mg-hyaluronate 3.3 mg tablet ([employer]) 1 tab PO DAILY Supplement 01/16/24
ezetimibe 10 mg tablet (Zetia) 10 mg PO HS High Cholesterol 01/16/24
loteprednol etabonate 0.5 % eye gel drops (Lotemax) 1 drp RIGHT EYE BID Eye Condition 01/16/24
metoprolol tartrate 25 mg tablet 12.5 mg PO BID Blood Pressure 01/16/24
rivaroxaban 20 mg tablet (Xarelto) 20 mg PO DAILY Blood Clot Prevention/Tx 01/16/24
Probiotic 1 tab PO DAILY 06/12/25
magnesium glycinate 120 mg (as glycinate) capsule 240 mg PO QPM 06/12/25
multivitamin 1 tab PO DAILY 06/12/25
omega-3 fatty acids 1 tab PO DAILY 06/12/25
omeprazole 20 mg tablet,delayed release 20 mg PO DAILY 06/12/25
melatonin 10 mg tablet 10 mg PO HS PRN insomnia 06/13/25
diphenhydramine HCl 25 mg capsule (Benadryl) 25 mg PO HS PRN sleep 08/15/25
tirzepatide 5 mg/0.5 mL subcutaneous pen injector (Mounjaro) 5 mg SC QWEEK 08/15/25
zolpidem 5 mg tablet (Ambien) 10 mg PO HS PRN sleep 08/15/25
If medication reconciliation has not been performed, why?: Medication List N/A (Patient cannot recall.)
Review of Systems
-
Constitutional: Reports No Symptoms
EENT: Reports No Symptoms
Respiratory: Reports No Symptoms
Cardiac: Reports No Symptoms
Abdomen/GI: Reports No Symptoms
: Reports No Symptoms
Musculoskeletal: Reports No Symptoms
Skin: Reports No Symptoms
Neurological: Reports No Symptoms
Endocrine: Reports No Symptoms
Hematologic/Lymphatic: Reports No Symptoms
Psych: Reports No Symptoms
Physical Exam
Vital Signs
Vital Signs
Temp Pulse Resp BP Pulse Ox
98.2 F 99 24 124/62 94
08/15/25 20:49 08/15/25 23:59 08/15/25 23:00 08/15/25 23:59 08/15/25 23:37
Physical Exam
General: Comfortable
HEENT: NormoCephalic, Anicteric, Moist mucous membranes, Atraumatic and PERRLA
Respiratory: Clear; No Wheezes, Rales or Rhonchi
Cardiac: S1/S2, Regular Rhythm and Murmur (III/ ANA)
GI: Soft, Non Tender, Non Distended and Normal Bowel Sounds
Musculoskeletal: No Clubbing, No Cyanosis and No Edema
Neuro: AO x 3 and Nonfocal/grossly intact
Laboratory Results
-
08/15/25 20:55
08/15/25 20:55
Laboratory Results
Total Bilirubin 0.7 mg/dl (0.2-1.3) 08/15/25 20:55
AST 26 U/L (14-36) 08/15/25 20:55
ALT 26 U/L (0-35) 08/15/25 20:55
Alkaline Phosphatase 72 U/L (38-126) 08/15/25 20:55
Troponin I 0.014 ng/ml 08/15/25 20:55
Impression/Plan
-
IMPRESSION:
80-year-old with past medical history of mitral valve replacement, aortic valve replacement with recent findings of progressive aortic valve stenosis suggestive of failure of replaced valve with presentation today of worsening dyspnea on exertion,
exertional chest discomfort suggest chest pressure but without dizziness lightheadedness or syncope. ECG is nonischemic and troponin is negative at this time. Mild pleural effusion on x-ray but no significant peripheral edema. She remains
hemodynamically stable.
PLAN:
Aortic stenosis -patient with a prior bioprosthetic aortic valve which is now failing with critical aortic stenosis on recent cardiac cath. She discussed with me that she is scheduled for a new procedure via TAVR with electrocautery (basilica
procedure) that is not done at or [facility] but that is done at [facility] and the plan is to be transferred there for the procedure.
- admit to ivu
- lasix 20mg iv daily and prn
- metoprolol 12.5 bid with hold parameters
- daily weight and i/os
- cardiology (Dr Yee) aware, plan for echo in am
AFIB
- continue Xarelto and metoprolol as above
DVT PPX - on xarelto
Code status - Full Code
--- NOTE | 2025-08-16 02:52 | EDRN ---
Report called to Jania in IVU
--- NOTE | 2025-08-16 04:36 | PTCARENOTE ---
Pt rec'd from ED on stretcher awake,alert oriented. wt and adm hx obtained. MATHIS, crackles noted bibasilar-no cough. Sinus with BBB on telemetry, no pacer spikes noted.
[2025-08-16 06:07] LABS: Hematocrit 36.0 % (37.0-47.0); Hemoglobin 11.9 g/dL (12.0-16.0); Mean Corp Hgb Conc. 33.1 g/dL (33.0-37.0); Mean Corpuscular Volume 95.5 fL (81.0-99.0); Platelet Count 146 10^3/uL (130-400); Red Cell Dist. Width 14.2 % (11.5-14.5)
[2025-08-16 06:54] LABS: Blood Urea Nitrogen 20 mg/dl (7-17); Calcium 9.2 mg/dl (8.4-10.2); Carbon Dioxide 28 mmol/L (22-30); Chloride 105 mmol/L (98-107); Estimated Creatinine Clearance 75 ml/min; Glucose 106 mg/dl (70-99); Magnesium 1.9 mg/dl (1.6-2.3); Potassium 4.0 mmol/L (3.5-5.1); Sodium 138 mmol/L (135-145); eGFR > 60.00
--- NOTE | 2025-08-16 07:46 | CON.CAR ---
Addendum entered and electronically signed by Sean Santiago MD 08/16/25 11:15:
Patient seen and evaluated personally. I agree with the plan of care, documentation and physical examination as discussed with the nurse practitioner and noted below.
Briefly 80-year-old woman with a history of atrial fibrillation, severe MR s/p MVR 2020, dual-chamber pacemaker, severe aortic stenosis s/p AVR 2017, DM, HPL, with prosthetic aortic valve stenosis and severe TR presented to the ER with shortness of
breath with heart failure symptoms. Patient was noted to be in fluid overload and IV Lasix was given. Patient does have critical aortic stenosis and diuresis was administered very carefully. Patient did improve significantly with diuresis and
breathing became easier for her. She is still not feeling back to her baseline. Patient is planned for basilica procedure to preserve the left main coronary artery with TAVR. Patient is likely going to need valve in valve with her previous bovine
trifecta valve from 2017.
At this time she is clinically doing better. We will obtain an echo urgently today. If her structural heart disease shows significant worsening, we will consider additional transfer of the patient to [facility] or for basilica TAVR procedure.
Hold [facility].
Echo today
Original Note:
Documented by User: GABRIEL Bales 08/16/25 09:38
Consultation
Consultation Request
Date/Time Consultation Requested: 08/16/2025 03:00
Date/Time Consultation Performed: 08/16/2025 07:45
Requesting Provider: Dr. Vega
Performing Provider: GABRIEL John for Dr. Santiago
Reason for Consultation: Acute on chronic HFpEF
Medical History
-
Chief Complaint: Shortness of breath, chest pressure
History of Present Illness:
Anni Henao is a 80-year-old female (known to Dr. Madison and Dr. Arrieta), with paroxysmal atrial fibrillation (on rivaroxaban), Medtronic dual-chamber PPM, acute/severe MR (MVR 2020), severe aortic stenosis (AVR 2017), type 2 diabetes, and
dyslipidemia with prosthetic aortic valve stenosis and moderate to severe tricuspid regurgitation who presented to the emergency department with a chief complaint of shortness of breath and chest pressure. The plan is for TAVR over third time redo
sternotomy SAVR. She was evaluated by CT surgery and interventional cardiology. Yesterday, she reported chest pressure and shortness of breath. Regarding her chest pressure, it felt like a band that was too tight around her chest. She took her
bra off and was hoping to achieve relief but did not. Her shortness of breath was at rest and with exertion and would not improve. She was told by interventional cardiology to present to the emergency department.
Past Medical History
Past Medical History: Arrhythmias (Paroxysmal atrial fibrillation, Medtronic DC PPM), Hypercholesterolemia, NIDDM and Valvular Disease (MVR 2020, AVR 2016 with prosthetic stenosis, tricuspid regurgitation)
Past Surgical History: Cardiac and Orthopedic
Social History
Tobacco: Non-Smoker
Alcohol: Former
Drug: None
Personal:
Living: With Family
Family History
Family History: Reviewed & Not Pertinent
Allergies / Home Medications
Allergy/AdvReac Type Severity Reaction Status Date / Time
No Known Allergies Allergy Verified 08/16/25 03:48
�Medication �Instructions �Recorded �Confirmed �Type
atorvastatin 40 mg tablet 40 mg PO QPM High cholesterol 01/18/18 08/16/25 History
cholecalciferol (vitamin D3) 25 1,000 units PO DAILY Supplement 06/22/21 08/16/25 History
mcg (1,000 unit) tablet
cartilage 40 mg-collagen II 10 1 tab PO DAILY Supplement 01/16/24 08/16/25 History
mg-boron 5 mg-hyaluronate 3.3 mg
tablet ([employer])
ezetimibe 10 mg tablet (Zetia) 10 mg PO HS High Cholesterol 01/16/24 08/16/25 History
loteprednol etabonate 0.5 % eye 1 drp RIGHT EYE BID Eye Condition 01/16/24 08/16/25 History
gel drops (Lotemax)
metoprolol tartrate 25 mg tablet 12.5 mg PO BID Blood Pressure 01/16/24 08/16/25 History
rivaroxaban 20 mg tablet (Xarelto) 20 mg PO DAILY Blood Clot 01/16/24 08/16/25 History
Prevention/Tx
Probiotic 1 tab PO DAILY 06/12/25 08/16/25 History
magnesium glycinate 120 mg (as 240 mg PO QPM 06/12/25 08/16/25 History
glycinate) capsule
multivitamin 1 tab PO DAILY 06/12/25 08/16/25 History
omega-3 fatty acids 1 tab PO DAILY 06/12/25 08/16/25 History
omeprazole 20 mg tablet,delayed 20 mg PO DAILY 06/12/25 08/16/25 History
release
melatonin 10 mg tablet 10 mg PO HS PRN insomnia 06/13/25 08/16/25 History
diphenhydramine HCl 25 mg capsule 25 mg PO HS PRN sleep 08/15/25 08/15/25 History
(Benadryl)
tirzepatide 5 mg/0.5 mL 5 mg SC QWEEK 08/15/25 08/16/25 History
subcutaneous pen injector
(Mounjaro)
zolpidem 5 mg tablet (Ambien) 10 mg PO HS PRN sleep 08/15/25 08/16/25 History
polyethylene glycol 3350 17 gram 17 g PO DAILY 08/16/25 08/16/25 History
oral powder packet (Miralax)
Review of Systems
-
History Source: Patient
All other systems: Negative unless noted
Constitutional: Fatigue
EENT: No Symptoms
Respiratory: Trouble Breathing
Cardiac: No Symptoms
Abdomen/GI: No Symptoms
: No Symptoms
Musculoskeletal: No Symptoms
Skin: No Symptoms
Neurological: No Symptoms
Endocrine: No Symptoms
Hematologic/Lymphatic: No Symptoms
Physical Exam
Vital Signs
Temp Pulse Resp BP Pulse Ox
97.8 F 98 20 151/81 97
08/16/25 03:16 08/16/25 03:14 08/16/25 03:16 08/16/25 03:14 08/16/25 03:16
Lab Results
08/16/25 05:38
08/16/25 05:38
Troponin I 0.014 ng/ml 08/15/25 20:55
Woj-U-Elqitynbkpc Pept 6390 pg/ml 08/15/25 23:52
Physical Exam
General: Well Developed, Well Nourished and Comfortable
HEENT: Normocephalic, Anicteric and Moist Mucous Membranes
Respiratory: Crackles and Accessory Resp Muscle Use (mi;d)
Cardiac: S1/S2, Regular Rhythm and Murmur
Breast: Deferred by me
GI: Soft, Non Tender, Non Distended and Normal Bowel Sounds
Rectal: Deferred by Provider
Genito-urinary: No Costovertebral Tender
Musculoskeletal: No Clubbing and No Cyanosis
Skin: Warm and Dry
Neuro: AO x 3
Hematologic/Lymphatic: No Lymphadenopathy
Psych: Calm
Impression / Plan
-
I/P: 80F with paroxysmal atrial fibrillation (on rivaroxaban), Medtronic dual-chamber PPM, acute/severe MR (MVR 2020), severe aortic stenosis (AVR 2016), type 2 diabetes, and dyslipidemia with prosthetic aortic valve stenosis and moderate to severe
tricuspid regurgitation who presented to the emergency department with a chief complaint of shortness of breath and chest pressure.
Primary traveling electrician: Dr. Madison
manufacturing engineering technologist: Dr. Arrieta
Acute heart failure, in the setting of critical aortic stenosis
- Recent cardiac catheterization confirmed critical aortic valve stenosis with moderately elevated biventricular filling pressures, moderate postcapillary pulmonary hypertension, normal cardiac output
- Status post intravenous furosemide in the emergency department, this requires intensive monitoring
- Furosemide 20 mg IV x 1 this morning, follow she may need an additional afternoon dose
- Trend daily weight, I/O, and BMP with diuresis
Prosthetic valve aortic stenosis, critical
- S/p AVR (20 mm bovine Trifecta, 2016)
- She was referred to [facility] (Dr. Everardo Veronica) for BASILICA procedure as the left coronary artery appears to be at high risk for iatrogenic obstruction with TAVR
Acute/severe MR s/p MVR (27mm Bovine Magna, 2020)
Paroxysmal atrial fibrillation
- Stable in sinus rhythm, continue metoprolol tartrate
- Oral Anticoagulation: Rivaroxaban 20 mg, she denies missed doses and abnormal bleeding
- [id number]: score at least 5 (Heart failure, age 75 or more, Diabetes Mellitus, female gender)
Medtronic DC PPM, followed in device clinic, stable
Type 2 diabetes mellitus, hold Mounjaro, HgbA1c pending, she may need low-dose SSI during her hospitalization
Dyslipidemia, on atorvastatin and Zetia, fasting lipid panel in a.m.
Data Reviewed
-
EKG: Report Reviewed by me (Sinus rhythm, bifascicular block, rate 98)
Radiology: Report Reviewed by me (Reviewed by me)
Medical Tests (Nuc Med, Echo etc): Report Reviewed by me
Labs: Labs Reviewed by me
Old Records: Reviewed

Documented by User: Quang Arrieta MD 08/16/25 09:32
Impression / Plan
-
I/P: 80F with paroxysmal atrial fibrillation (on rivaroxaban), Medtronic dual-chamber PPM, acute/severe MR (MVR 2020), severe aortic stenosis (AVR 2016), type 2 diabetes, and dyslipidemia with prosthetic aortic valve stenosis and moderate to severe
tricuspid regurgitation who presented to the emergency department with a chief complaint of shortness of breath and chest pressure.
Primary traveling electrician: Dr. Madison
manufacturing engineering technologist: Dr. Arrieta
Acute heart failure, in the setting of critical aortic stenosis
- Recent cardiac catheterization confirmed critical aortic valve stenosis with moderately elevated biventricular filling pressures, moderate postcapillary pulmonary hypertension, normal cardiac output
- Status post intravenous furosemide in the emergency department, this requires intensive monitoring
- Furosemide 20 mg IV x 1 this morning, follow she may need an additional afternoon dose
- Trend daily weight, I/O, and BMP with diuresis
Prosthetic valve aortic stenosis, critical
- S/p AVR (20 mm bovine Trifecta, 2016)
- She was referred to [facility] (Dr. Everardo Veronica) for ShortCut leaflet modification facilitated TAVR as both coronary arteries appear to be at high risk for iatrogenic obstruction with TAVR
Acute/severe MR s/p MVR (27mm Bovine Magna, 2020)
Paroxysmal atrial fibrillation
- Stable in sinus rhythm, continue metoprolol tartrate
- Oral Anticoagulation: Rivaroxaban 20 mg, she denies missed doses and abnormal bleeding
- [id number]: score at least 5 (Heart failure, age 75 or more, Diabetes Mellitus, female gender)
Medtronic DC PPM, followed in device clinic, stable
Type 2 diabetes mellitus, hold Mounjaro, HgbA1c pending, she may need low-dose SSI during her hospitalization
Dyslipidemia, on atorvastatin and Zetia, fasting lipid panel in a.m.
[2025-08-16] MEDS: XARELTO 20 MG PO (08:20)
[2025-08-16] MEDS: LOPRESSOR 12.5 MG PO ×2 (08:20→20:33)
[2025-08-16] MEDS: PROTONIX 40 MG PO (08:20)
[2025-08-16] MEDS: LASIX 20 MG IV (08:21)
--- NOTE | 2025-08-16 10:03 | W.PN.UPDATE ---
Update Note
Progress Note Update
Patient admitted around 1 AM with worsening dyspnea on exertion, chest discomfort, chest pressure, ruling in for acute CHF
Has history of severe ; scheduled for TAVR (BASILICA procedure) in [facility] (Dr. Everardo Veronica)
Assessment:
Acute heart failure, in the setting of critical aortic stenosis
- Recent cardiac catheterization 06/20/25 confirmed critical aortic valve stenosis with moderately elevated biventricular filling pressures, moderate postcapillary pulmonary hypertension, normal cardiac output
- continue IV Lasix, requires intensive monitoring of I/Os, lytes, weights
- repeat Echo
- [facility] cardiology
Prosthetic valve aortic stenosis, critical
- s/p AVR (20 mm bovine Trifecta, 2016)
- She was referred to [place] (Dr. Everardo Veronica) for TAVR (short procedure) as the left coronary artery appears to be at high risk for iatrogenic obstruction with TAVR
Acute/severe MR s/p MVR (27mm Bovine Magna, 2020)
Paroxysmal atrial fibrillation
- continue BB/Xarelto
- [id number]: score at least 5 (Heart failure, age 75 or more, Diabetes Mellitus, female gender)
Medtronic DC PPM, followed in device clinic, stable
Type 2 diabetes mellitus
- A1c pending
- SSI low dose
- holding Mounjaro
HLD
- on Zetia/Statin
- CVE panel
GERD - continue PPI
DJD
OA
DVT ppx: Xarelto
Code: Full
[2025-08-16 10:57] LABS: Glycohemoglobin (HgbA1c) 5.9 % (4.0-5.9)
[2025-08-16 13:22] LABS: Glucose - Point of Care 125 mg/dl (70-99)
[2025-08-16] MEDS: LIPITOR 40 MG PO (17:30)
[2025-08-16 17:41] LABS: Glucose - Point of Care 107 mg/dl (70-99)
[2025-08-16] MEDS: MIRALAX 17 GRAMS PO (17:41)
--- NOTE | 2025-08-16 17:57 | PTCARENOTE ---
Ambulating in room, no c/o chest pain, Pt requesting Miralax, order obtained from Dr Wheatley.
[2025-08-16 21:10] LABS: Glucose - Point of Care 177 mg/dl (70-99)
--- NOTE | 2025-08-16 21:26 | PTCARENOTE ---
Rec'd pt at change of shift. Pt AAO*3, VSS, and SR on tele monitor with BBB. Pt denies any pain or discomfort and SOB. Pt walked in winter with staff and now resting in room with call perez in reach. See MAR and flowchart for full pt care and
assessment.
[2025-08-16] MEDS: ZETIA 10 MG PO (22:09)
[2025-08-16] MEDS: BENADRYL 25 MG PO (22:09)
[2025-08-17 03:27] VITALS: BP 134/62; BMI 28.9
[2025-08-17] MEDS: TYLENOL 650 MG PO ×2 (03:53→10:51)
[2025-08-17 04:12] LABS: Hematocrit 38.7 % (37.0-47.0); Hemoglobin 12.6 g/dL (12.0-16.0); Mean Corp Hgb Conc. 32.6 g/dL (33.0-37.0); Mean Corpuscular Volume 93.5 fL (81.0-99.0); Nucleated Red Blood Cells % 0 %; Platelet Count 164 10^3/uL (130-400); Red Cell Dist. Width 14.3 % (11.5-14.5)
[2025-08-17 04:35] LABS: Blood Urea Nitrogen 20 mg/dl (7-17); Calcium 9.6 mg/dl (8.4-10.2); Carbon Dioxide 30 mmol/L (22-30); Chloride 102 mmol/L (98-107); Estimated Creatinine Clearance 64 ml/min; Glucose 121 mg/dl (70-99); HDL Cholesterol 53 mg/dl; LDL Cholesterol, Calculated 70 mg/dl; Potassium 4.1 mmol/L (3.5-5.1); Sodium 138 mmol/L (135-145); Very Low Density Lipoprotein 17 mg/dl (0-30); eGFR > 60.00
[2025-08-17 07:35] VITALS: BP 115/72
[2025-08-17] MEDS: LASIX 20 MG IV (08:10)
[2025-08-17] MEDS: MIRALAX 17 GRAMS PO (08:11)
[2025-08-17] MEDS: LOPRESSOR 12.5 MG PO (08:11)
[2025-08-17] MEDS: XARELTO 20 MG PO (08:13)
[2025-08-17] MEDS: PROTONIX 40 MG PO (08:13)
[2025-08-17 08:29] LABS: Glucose - Point of Care 131 mg/dl (70-99)
[2025-08-17 11:00] VITALS: BP 101/58
--- NOTE | 2025-08-17 11:15 | PTCARENOTE ---
Pt c/o bilat hand discomfort, med with Tylenol 650 mg po as ordered.
--- NOTE | 2025-08-17 11:51 | W.PN.HOSP.TC ---
Today's Communication/Plan
-
dc to home today
Assessment / Plan
Assessment / Plan
Assessment:
Acute heart failure, in the setting of critical aortic stenosis
- Recent cardiac catheterization 06/20/25 confirmed critical aortic valve stenosis with moderately elevated biventricular filling pressures, moderate postcapillary pulmonary hypertension, normal cardiac output
- dc on Lasix 20mg daily x 2 days, then PRN dosing
- CBC cardiology OP f/u
Prosthetic valve aortic stenosis, critical
- s/p AVR (20 mm bovine Trifecta, 2016)
- repeat Echo with worsening gradients
- She was referred to [facility] (Dr. Everardo Veronica) for TAVR (short procedure) as the left coronary artery appears to be at high risk for iatrogenic obstruction with TAVR
Acute/severe MR s/p MVR (27mm Bovine Magna, 2020)
Paroxysmal atrial fibrillation
- continue BB/Xarelto
- [id number]: score at least 5 (Heart failure, age 75 or more, Diabetes Mellitus, female gender)
Medtronic DC PPM, followed in device clinic, stable
Type 2 diabetes mellitus
- SSI low dose
- holding Mounjaro while inpatient
HLD
- on Zetia/Statin
- CVE panel
GERD - continue PPI
DJD
OA
DVT ppx: Xarelto
Code: Full
More than 30 minutes spent in discharge including
Final examination of the patient
Summarizing hospital stay
Instructions for continuing care to all relevant caregivers
Preparation of discharge records, prescriptions, and referral forms
Total time spent (in minutes): 41
Anticipated Discharge: Today
Subjective/Interval History
-
Date of Service: August 17, 2025
resting comfortably, no complaints
Objective Data
-
Labs:
Laboratory Results
08/17/25
03:35
WBC 9.1
Hgb 12.6
Hct 38.7
Plt Count 164
Sodium 138
Potassium 4.1
Chloride 102
Carbon Dioxide 30
BUN 20 H
Creatinine 0.7
Glucose 121 H
Calcium 9.6
Vital Signs:
Vital Signs
Temp Pulse Resp BP Pulse Ox
97.5 F 77 20 101/58 92
08/17/25 11:00 08/17/25 11:00 08/17/25 11:00 08/17/25 11:00 08/17/25 11:00
I&O
08/16/25 08/17/25 08/18/25
06:59 06:59 06:59
Intake Total 480 / 480
Output Total 1050 / 1050 1950 / 1950 450 / 450
Balance -1050 / -1050 -1470 / -1470 -450 / -450
Physical Exam
-
General: No Apparent Distress
HEENT: Normocephalic and Atraumatic
Respiratory: Negative Wheezes
Cardiac: Regular Rhythm, S1/S2 and Murmur
GI: Soft and Nontender
Neuro: AO x 3
Psych: Calm
Data Reviewed
-
Total Time Spent with Patient (in minutes): 41
Labs: Labs Reviewed by me
--- NOTE | 2025-08-17 11:56 | W.DCSUMMARY ---
Discharge Summary
Discharge Data
Date of Admission: 08/16/25
Date of Discharge: 08/17/25
-
Pending Results: No
Hospital Course
80 y/o F paroxysmal atrial fibrillation, aortic valve replacement, bioprosthetic mitral valve replacement, heart block s/p ppm, DM, HTN presented on 08/16 with SOB and chest pressure. She has a known severe and was found to have Acute CHF. She
received IV Lasix with improvement. Repeat Echo showed worsening gradients. She was discharged on Lasix 20mg daily prn. She will follow up with Dr. Everardo Veronica ([facility]) for TAVR procedure for severe soon. Discharged home 08/17/25.
Discharge Plan
-
Patient Disposition: Home (Routine Discharge)
Discharge Diagnosis/Procedures: acute CHF. severe requiring TAVR in [facility]
Condition: Fair
Diet: Low Cholesterol, 2 Gram Sodium and Diabetic, Carb Controlled
Activity: As tolerated
Specialty Instructions: Weigh Daily- Call MD for wt gain/loss 3 lbs overnight/5 lbs in 1 week
Referrals:
oJhn Hollis MD [Family Provider, Family Practice]
Quang Arrieta MD [Active, Cardiology]
Referral Note: to coordinate and expedite TAVR in [place]
Additional Discharge Medication Instructions: for Monday and Monday, take the Lasix 20mg daily dose. Starting Monday take it as needed if weight gain
Prescriptions:
New
furosemide [Lasix] 20 mg tablet
20 mg PO DAILY PRN (Reason: Weight gain) Qty: 30 0RF
Continued
atorvastatin 40 MG tablet
40 mg PO QPM
cholecalciferol (vitamin D3) 1,000 UNITS tablet
1,000 units PO DAILY
ezetimibe [Zetia] 10 mg Tablet
10 mg PO HS
Xarelto 20 mg Tablet
20 mg PO DAILY
loteprednol etabonate [Lotemax] 0.5 % Drops,Gel
1 drp RIGHT EYE BID
[employer] 40-10-5-3.3 mg Tablet
1 tab PO DAILY
metoprolol tartrate 12.5 MG tablet
12.5 mg PO BID
multivitamin Tablet
1 tab PO DAILY
omeprazole 20 mg Tablet,Delayed Release (Dr/Ec)
20 mg PO DAILY
magnesium glycinate 120 mg Capsule
240 mg PO QPM
Probiotic
1 tab PO DAILY
omega-3 fatty acids
1 tab PO DAILY
melatonin 10 mg Tablet
10 mg PO HS PRN (Reason: insomnia)
Patient Comments:
2-3 x's week at HS
diphenhydramine HCl [Benadryl] 25 mg Capsule
25 mg PO HS PRN (Reason: sleep)
Patient Comments:
hasn't taken it for couple days
Mounjaro 5 mg/0.5 mL Pen Injector
5 mg SC QWEEK
Rx Instructions:
takes on sat's
zolpidem [Ambien] 5 mg Tablet
10 mg PO HS PRN (Reason: sleep)
polyethylene glycol 3350 [Miralax] 17 gram Powder In Packet
17 g PO DAILY
Rx Instructions:
1/2 cap full daily
Discharge Orders:
Discharge Patient (As Directed); Ordered 08/17/25
Ordered By: Toño Wheatley
Discharge Date and Time
Print Language: TOGOLESE
--- NOTE | 2025-08-17 12:04 | W.PN.CD ---
Today's Communication / Plan
-
- Stable for discharge today
Impression / Plan
-
I/P: 80F with paroxysmal atrial fibrillation (on rivaroxaban), Medtronic dual-chamber PPM, acute/severe MR (MVR 2020), severe aortic stenosis (AVR 2016), type 2 diabetes, and dyslipidemia with prosthetic aortic valve stenosis and moderate to severe
tricuspid regurgitation who presented to the emergency department with a chief complaint of shortness of breath and chest pressure.
Primary trimmer climber: Dr. Madison
smoke inspector: Dr. Arrieta
Acute heart failure, in the setting of critical aortic stenosis
- Recent cardiac catheterization confirmed critical aortic valve stenosis with moderately elevated biventricular filling pressures, moderate postcapillary pulmonary hypertension, normal cardiac output
- Status post intravenous furosemide in the emergency department, this requires intensive monitoring
- Furosemide -switch IV to p.o. Continue p.o. Lasix for 2 more days and then only as needed.
- Trend daily weight, I/O, and BMP with diuresis
Prosthetic valve aortic stenosis, critical
- S/p AVR (20 mm bovine Trifecta, 2016)
- She was referred to [place] (Dr. Everardo Veronica) for ShortCut leaflet modification facilitated TAVR as both coronary arteries appear to be at high risk for iatrogenic obstruction with TAVR
- Echo urgently done on 08/16/2025 shows severe critical aortic stenosis with mean aortic valve gradient of 84 mmHg.
- When compared to previous echo from April 2025, the gradients from apical windows were similar. The echo on 08/16/2025 was able to obtain higher gradient from neck duplex. Otherwise, both echo shows very similar level of critically stenosed
bioprosthetic aortic valve.
- Clinically patient is doing much better. Shortness of breath has resolved.
- Plan is to discharge patient home with p.o. Lasix for 2 more days then as needed
- Plan for outpatient aortic valve replacement likely at [place].
Acute/severe MR s/p MVR (27mm Bovine Magna, 2020)
Paroxysmal atrial fibrillation
- Stable in sinus rhythm, continue metoprolol tartrate
- Oral Anticoagulation: Rivaroxaban 20 mg, she denies missed doses and abnormal bleeding
- [id number]: score at least 5 (Heart failure, age 75 or more, Diabetes Mellitus, female gender)
Medtronic DC PPM, followed in device clinic, stable
Type 2 diabetes mellitus, hold Yulissa, HgbA1c pending, she may need low-dose SSI during her hospitalization
Dyslipidemia, on atorvastatin and Zetia, fasting lipid panel in a.m.
Physical Exam
Vital Signs/Labs
Vital Signs
Temp Pulse Resp BP Pulse Ox
97.5 F 77 20 101/58 92
08/17/25 11:00 08/17/25 11:00 08/17/25 11:00 08/17/25 11:00 08/17/25 11:00
08/16/25 08/17/25 08/18/25
06:59 06:59 06:59
Actual Weight 74.6 kg 74 kg
08/17/25 03:35
08/17/25 03:35
Magnesium 1.9 mg/dl (1.6-2.3) 08/16/25 05:38
Triglycerides 85 mg/dl (10-149) 08/17/25 03:35
LDL Cholesterol, Calc 70 mg/dl 08/17/25 03:35
VLDL Cholesterol, Calc 17 mg/dl (0-30) 08/17/25 03:35
HDL Cholesterol 53 mg/dl 08/17/25 03:35
08/15/25
23:52
Xgx-C-Vzkkqkaqjvn Pept 6390
LAB Results
08/15/25
20:55
Troponin I 0.014
Physical Exam
Constitutional: No acute distress and Comfortable
EENT: Anicteric and Moist mucous membranes
Cardiovascular: Rhythm & rate is regular, Pedal edema is absent and JVD pressure is normal
Respiratory: Respiratory effort normal, Lungs clear to auscul. and Wheeze Absent
GI: Soft, Non tender and Normal bowel sounds
Neuro/Psych: Alert, Oriented and AO x 3
Data Reviewed
-
Date of Service: August 17, 2025
Medical Decision Making: Reviewed Test Results, Test Interpretation and Review of Case with other Provider
EKG: Tracing Personally Visualized and interpreted
Echo: Tracing Personally Visualized and interpreted
Labs: Labs Reviewed by me
Old Records: Reviewed
[2025-08-17 12:10] LABS: Glucose - Point of Care 153 mg/dl (70-99)
--- NOTE | 2025-08-17 14:05 | PTCARENOTE ---
Discharge instructions reviewed with Pt, Pt expressed understanding.
== END 2025-08-17 13:35 | disposition home or self-care (01) | DRG 291 ==
LOC: IVU 01:19
PROVIDERS: Emergency Medicine; ADMITTING PHYSICIAN Internal Medicine; ATTENDING PHYSICIAN Internal Medicine; CONSULT PHYSICIAN Internal Medicine Cardiovascular Disease; EMERGENCY PHYSICIAN Emergency Medicine; FAMILY PHYSICIAN Family Medicine
DX: I11.0 Hypertensive heart disease with heart failure (principal); I50.33 Acute on chronic diastolic (congestive) heart failure; T82.857A Stenosis of other cardiac prosthetic devices, implants and grafts, initial encounter; Z87.891 Personal history of nicotine dependence; I48.0 Paroxysmal atrial fibrillation; E11.9 Type 2 diabetes mellitus without complications; K21.9 Gastro-esophageal reflux disease without esophagitis; Y83.1 Surgical operation with implant of artificial internal device as the cause of abnormal reaction of the patient, or of later complication, without mention of misadventure at the time of the procedure; Z79.01 Long term (current) use of anticoagulants; Z95.0 Presence of cardiac pacemaker; Z95.3 Presence of xenogenic heart valve
CPT/HCPCS: 71046; 80048; 80053; 80061; 82962; 83036; 83735; 83880; 84443; 84484; 85025; 85027; 93005; 93306; 96374; 99285

== ENCOUNTER → 2025-09-09 13:48 | Outpatient (REF) | payer MEDICARE, SELFPAY ==
[2025-09-09 14:59] LABS: Hematocrit 38.4 % (37.0-47.0); Hemoglobin 11.9 g/dL (12.0-16.0); Mean Corp Hgb Conc. 31.0 g/dL (33.0-37.0); Mean Corpuscular Volume 97.7 fL (81.0-99.0); Nucleated Red Blood Cells % 0 %; Platelet Count 149 10^3/uL (130-400); Red Cell Dist. Width 14.6 % (11.5-14.5)
[2025-09-09 15:25] LABS: Blood Urea Nitrogen 21 mg/dl (7-17); Calcium 9.5 mg/dl (8.4-10.2); Carbon Dioxide 30 mmol/L (22-30); Chloride 102 mmol/L (98-107); Glucose 121 mg/dl (70-99); Potassium 4.2 mmol/L (3.5-5.1); Sodium 138 mmol/L (135-145); eGFR > 60.00
== END ==
LOC: REG 13:48
PROVIDERS: ATTENDING PHYSICIAN Nurse Practitioner
DX: M79.10 Myalgia, unspecified site (principal)
CPT/HCPCS: 36415; 80048; 85025

== ENCOUNTER 2025-09-12 19:02 | Observation (INO) | payer MEDICARE, SELFPAY ==
[2025-09-12] VITALS (8 sets, daily range): BP systolic 93–149; BP diastolic 53–82; BMI 27.9
--- NOTE | 2025-09-12 12:08 | ED.GENMED ---
History of Present Illness
General
Chief Complaint: Breathing Problem
Source: patient
Exam Limitations: none
Time Seen by Provider: 09/12/25 11:52
Nursing documentation reviewed up to this point in time: agreed with
History of Present Illness
History of Present Illness:
Patient is a 80-year-old female with history atrial fibrillation on Xarelto, CHF, aortic stenosis currently 9 days s/p TAVR who presents to the emergency department with progressively worsening shortness of breath. Patient states that she had a
TAVR performed by Dr. Veronica on 09/03 at [facility]. She was discharged on 09/04 however has been experiencing progressively worsening exertional dyspnea and mild chest tightness at rest. She denies any fever, productive cough, or
hemoptysis. No exertional chest pain. No weight gain or lower extremity swelling.
She contacted her CT surgeon who recommended Lasix 20 mg twice daily. However, symptoms persisted and she was ultimately referred for evaluation in the emergency department.
Past History
Past History
ED Past Medical History: CHF, GERD, HTN, Hypercholesterolemia and Other
ED Past Surgical History: Cardiac, , Gynecological and Other
Social History
Tobacco: Former smoker
Alcohol: Occasional
Drug: None
Personal:
Living: with family
Family History
Family History: Diabetes
Review of Systems
Review of Systems
Allergies reviewed?: Yes
All Other Systems: ROS reviewed and negative except as documented in HPI and ROS
Phy Exam
Physical Exam
Physical Exam:
Vitals: Mildly hypertensive, otherwise vital signs stable. Afebrile
General: Patient is well appearing, no acute distress
Skin: Warm and dry, no rashes or lesions
Head: Normocephalic, atraumatic
Eyes: Sclera nonicteric.
Throat: Protecting airway
Neck: Normal ROM, no cervical spine tenderness, no meningismus
Cardiac: Regular rate and rhythm, no murmurs.
Pulm: Normal respiratory effort. Mild bibasilar rales.
Abdomen: Soft and nontender
Extremities: No evidence of cyanosis or edema
Neuro: AAOx3. Grossly intact
Psychiatric: Normal affect.
Scores
Heart Failure Risk
Heart Failure Risk Score: Not Applicable
Course
Orders/Labs/Results
Orders:
Orders
09/12/25 12:06
Electrocardiogram (*1) Urgent
Reason for Study: Shortness of Breath
EKG- Treatment ONCE
CR Chest - 2 Views Urgent
Comment:
Reason For Exam: SOB recent TAVR
09/12/25 12:12
C-Reactive Protein Urgent
Comment: ADD ON
COVID-19 Antigen Urgent
Source: Nasal Swab
Complete Blood Count/With Diff Urgent
Comprehensive Metabolic Panel Urgent
Magnesium Urgent
Comment: ADD ON
NT-proBNP Urgent
Influenza A+B Rapid Molecular Urgent
SHARI Source: Nasal Swab
Specimen Description:
09/12/25 14:47
CT Chest PE Study Urgent
Comment:
Reason For Exam: SOB recent TAVR
09/12/25 14:52
CARDIOLOGY CONSULT Urgent
Consulting Provider: Mckenzie Madison
Was physician already notified: Yes
09/12/25 Dinner
Cholesterol Lowering
At Your Request: Full Participation
Cholesterol Lowering: Sodium, 2 Gram
09/12/25 15:19
Add On- LAB Urgent
Tests Added?: crp
09/12/25 15:24
Echo 2D MMode Color/Doppler Urgent
Reason for Study: sob, s/p TAVR 09/03/25
09/12/25 17:07
Troponin I Urgent
09/12/25 18:10
Admit/Transfer Patient As Directed
Co-Sign Provider:
Level of Care: Observation services
Assign to:: Telemetry
Physician / Group: Hospitalist
Diagnosis: Shortness of breath
Reason for Telemetry: Post Cardiac Surgery
Date to Stop Telemetry: 09/15/25
Time to Stop Telemetry: 11:00
Reason for Hospitalization: (Shortness of breath
09/12/25 18:11
PRN Pain Medication Management As Directed
May give lesser potent ordered pain med per pt: Yes
preference::
Protocol:: Medication orders for pain may be administered in a
manner that supports deferring to patient preference
when the pt is:
- Requesting an ordered lesser potent pain medication.
Least to most potent pain medications are defined
as: acetaminophen < NSAID < tramadol < opioids
(morphine, oxycodone, hydromorphone).
- Requesting a lesser dose of the same medication IF
ORDERED.
- Requesting a less intrusive route of administration
if both routes are prescribed by the provider (PO <
IV).
09/12/25 18:12
Code Status As Directed
Resuscitation Status: Full Code
09/12/25 20:07
Acetaminophen [Tylenol] 650 mg PO Q4HPRN PRN
Bisacodyl [Dulcolax] 10 mg RECTAL [id number] PRN
Dextrose 50%-Water [Dextrose 50% Syringe] 12.5 grams IV [id number] PRN
Docusate W/Senna [Senokot-S] 1 tablet PO BIDPRN PRN
Furosemide [Lasix] 20 mg PO DAILYPRN PRN Weight gain
Glucagon [GlucaGen] 1 mg IM PRN PRN
Polyethylene Glycol Powder [Miralax] 17 grams PO DAILYPRN PRN
loteprednol etabonate [Lotemax] 1 drop RIGHT EYE BID
09/12/25 20:07
Activity As Directed
Activity Level: Out of Bed-Early Mobility
Bedside Glucose Monitoring As Directed
Frequency: AC&HS
Additional Instructions:: Change to q6h if pt on TPN, tube feeding or not eating
Vital Signs As Directed
Frequency: Per unit guidelines
Rx Incentive Spirometry [RESP] Routine
Frequency: q1h while awake
09/12/25 21:00
Metoprolol [Lopressor] 12.5 mg PO BID
Pantoprazole [Protonix] 40 mg PO BID
09/12/25 22:00
Diphenhydramine [Benadryl] 25 mg PO HSPRN PRN sleep
Ezetimibe [Zetia] 10 mg PO HS
Melatonin 10 mg PO HSPRN PRN
Rivaroxaban [Xarelto] 20 mg PO HS
Zolpidem Tartrate [Ambien] 5 mg PO HSPRN PRN sleep
09/12/25 23:25
Magnesium Routine
09/13/25 06:20
Basic Metabolic Panel IN AM
Complete Blood Count/With Diff IN AM
09/13/25 07:30
Insulin Aspart Corrective Low [Novolog Flexpen-Low Resistance] See Protocol SC AC
09/13/25 08:00
Cholecalciferol (Vitamin D3) [VITAMIN D3 (cholecalciferol)] 25 mcg PO DAILY
Lactobac/Bifidobac [Visbiome] 1 cap PO DAILY
Multivitamin [Theragran] 1 tablet PO DAILY
Polyethylene Glycol Powder [Miralax] 8.5 grams PO DAILY
zuuvvuyeu-ecupdvdd-hzz-hyalur [Joint Health] 1 tablet PO DAILY
omega 3-rlo-ill-fish oil [Fish Oil] 1 cap PO DAILY
09/13/25 18:00
Atorvastatin [Lipitor] 40 mg PO QPM
09/15/25 11:00
DC Protocol for Telemetry ONCE
Abnormal Lab Results
09/12/25
12:12
RBC 3.97 L 10^6/uL
(4.20-5.40)
Hct 36.7 L %
(37.0-47.0)
RDW 14.6 H %
(11.5-14.5)
Abs Immat Gran (auto) 0.1 H 10^3/uL
(0-0.05)
Absolute Neuts (auto) 7.3 H 10^3/uL
(1.4-6.5)
Absolute Monos (auto) 1.0 H 10^3/uL
(0.1-0.6)
Lymphocytes % 14.1 L %
(20.5-51.1)
Monocytes % 10.3 H %
(1.7-9.3)
BUN 21 H mg/dl
(7-17)
Glucose 112 H mg/dl
(70-99)
09/12/25 12:12
09/12/25 12:12
Vital Signs
Initial and Last Documented VS:
Initial Vital Signs
Temp Pulse Resp BP Pulse Ox
97.8 F 89 18 147/82 96
09/12/25 10:33 09/12/25 10:33 09/12/25 10:33 09/12/25 10:33 09/12/25 10:33
Last Documented Vital Signs
Temp Pulse Resp BP Pulse Ox
97.6 F 85 16 121/66 95
09/13/25 11:24 09/13/25 11:24 09/13/25 11:24 09/13/25 11:24 09/13/25 11:24
MDM/Problems Addressed
Differential Diagnosis Includes:
Not limited to: post-operative complication, pleural effusion, CHF exacerbation, pulmonary embolism, acute coronary syndrome, viral illness, etc
MDM/Problems Addressed:
80-year-old female 9 days s/p TAVR presenting with progressively worsening exertional dyspnea and non- exertional chest tightness. No fevers or productive cough. Patient anticoagulant on Xarelto.
Patient hemodynamically stable on arrival. On exam, she appears well and in no distress. Cardiac exam unremarkable. Mild bibasilar rales noted, however she appears in no respiratory distress. No lower extremity edema.
Initial work up essentially unremarkable, including basic labs, pro- BNP, and chest x-ray. Given recent procedure and exertional dyspnea, while she is on Xarelto, we did obtain a CTPE without acute abnormalities.
Patient was seen by our gymnastics coach or instructor, Dr. Madison who ordered a bedside echocardiogram, which revealed no acute abnormalities.
Suspicion is likely mild exertional dyspnea secondary to deconditioning. Her chest pain is non-exertional in nature with an overall low suspicion for ACS.
After discussion with patients cardiothoracic surgeon at [facility] � given high risk nature of TAVR� he recommends admission/observation for troponin trending overnight
I did discuss with patient who is agreeable with plan. Cardiology aware. Patient accepted to hospitalist service in stable condition.
Chronic conditions affecting care:
Atrial fibrillation on xarelto, CHF, HTN, Aortic stenosis 9 days s/p TAVR
Acute Exacerbation and/or Progression of Chronic Illness:
N/A
*Radiology
Radiology exam reviewed: radiology read reviewed
*Pulse Oximetry
SaO2: 96
Oxygen Mode of Delivery: Room air
Patient hypoxic: no
*EKG
Interpreted by ED Provider?: Yes
EKG Intrepretation Date: 09/13/25
Interpretation: abnormal
Comparison EKG: no changes
Heart Rate: 69
Rate: normal
Rhythm: sinus
Interval: normal QT interval
QRS Pattern: right bundle branch block
*Top Steep Tender Interpretation
Rate: normal
Interpretation: normal
Heart Rate: 88
Rhythm: sinus
*Critical Care Note
Total Time (30-74mins, 75-104mins- exclusive of procedures): Not Applicable
Patient Management
Discussion with other providers: Vessel Welder (Discussed with cardiology and patients CT surgeon outpatient )
ED Attending Note
-
Portions of this chart may have been created with voice recognition software.� Occasional wrong word or��sound alike� substitutions may have occurred due to the inherent limitations of voice recognition software.
Discharge Plan
Departure
Patient Disposition: Admit
Date of Disposition: 09/12/25
Time of Disposition: 17:09
Presentation/result/management discussed w/ accepting MD/DO: Hospitalist
Discharge Problem:
Exertional dyspnea, Chest pain
Interventions
Interventions:
*Risk Screen - Suicide Last Done: 09/12/25 10:33
*General Assessment Last Done: 09/12/25 10:33
*Neglect/Abuse Screening Last Done: 09/12/25 10:33
*ED COVID-19 Vaccine History Last Done: 09/12/25 20:16
*ED Influenza Vaccine History Last Done: 09/12/25 10:33
[facility] Fall Risk Assessment Tool Last Done: 09/12/25 10:32
*Nursing Disposition Last Done: 09/12/25 20:14
ED- Cardiac Assessment Last Done: 09/12/25 19:30
ED- Pulmonary Assessment Last Done: 09/12/25 19:30
Discharge Date and Time
Discharge Date/Time: 09/12/25 20:15
[2025-09-12 12:57] LABS: COVID-19 Antigen Negative (Negative)
[2025-09-12 13:09] LABS: ALT (SGPT) 17 U/L (0-35); AST (SGOT) 24 U/L (14-36); Albumin 4.4 g/dl (3.5-5.0); Alkaline Phosphatase 78 U/L (38-126); Blood Urea Nitrogen 21 mg/dl (7-17); Calcium 9.6 mg/dl (8.4-10.2); Carbon Dioxide 30 mmol/L (22-30); Chloride 101 mmol/L (98-107); Glucose 112 mg/dl (70-99); Potassium 4.0 mmol/L (3.5-5.1); Sodium 135 mmol/L (135-145); Total Protein 7.1 g/dl (6.3-8.2); eGFR > 60.00
[2025-09-12 13:19] LABS: Hematocrit 36.7 % (37.0-47.0); Hemoglobin 12.2 g/dL (12.0-16.0); Mean Corp Hgb Conc. 33.2 g/dL (33.0-37.0); Mean Corpuscular Volume 92.4 fL (81.0-99.0); Nucleated Red Blood Cells % 0 %; Platelet Count 166 10^3/uL (130-400); Red Cell Dist. Width 14.6 % (11.5-14.5)
--- NOTE | 2025-09-12 15:23 | W.PN.CD ---
Addendum entered and electronically signed by Mckenzie Madison MD 09/12/25 17:09:
Apparently Dr Veronica is recommending overnight observation to check troponins as the particular procedure she had has a high risk of coronary artery embolization. Reassured by no new regional wall motion on echo but seems resonable.
Addendum entered and electronically signed by Mckenzie Madison MD 09/12/25 17:07:
I saw and evaluated the patient, and I provided the substantive portion of the medical decision making.
I reviewed and agree with the note by [ ] and it accurately reflects our care.
I personally performed the medical decision making of the this encounter and my assessment and plan is below:
80-year-old female well-known to me in the outpatient setting with a history of paroxysmal atrial fibrillation on Xarelto diabetes dyslipidemia history of acute severe mitral regurgitation status post MVR in 2020, history of AVR in 2017 status post
severe bioprosthetic AAS who underwent a shortcut leaflet modification facilitated TAVR on 09/03/2025 at [facility] presents for evaluation of ongoing shortness of breath with exertion. She states she expected to feel so
much better after her TAVR but is continuing to feel short of breath with exertion especially climbing the stairs. Additionally, at night after dinner she has a fullness in her chest that is better with sitting up. On her last office visit she
complained of myalgias and low-grade temperatures. Currently, she is feeling improved by sitting up in the bed. On exam she has a regular rate and rhythm with a normal soft systolic murmurs in all areas, lungs showed bibasilar rales, otherwise
clear to auscultation. No lower extremity edema.
Today she underwent an echocardiogram that showed no evidence of pericardial effusion, normal LVEF, normally functioning bioprosthetic aortic valve, normally functioning bioprosthetic mitral valve, mild pulmonary hypertension are normal IVC size and
collapse.
She had a CT PE that was negative for PE did show by basilar atelectasis. Otherwise no significant findings.
Labs show an improvement in her proBNP, normal CRP, normal white count, no evidence of acute kidney injury.
EKG shows sinus rhythm with right bundle branch block
Assessment:
Dyspnea on exertion: I suspect some degree of deconditioning and some atelectasis. She awaited specialized TAVR procedure for several months and was not active in the meantime. Now that her valve has been fixed, she will begin her walking program.
There is no evidence of a pericardial effusion, no heart failure on chest x-ray or exam, no new pneumonia, and no new anemia. Testing is all reassuring. She is reassured. I instructed her to follow-up with cardiac rehab in the new year. We
will get her an incentive spirometer for discharge.
Chest pain: She has a known hiatal hernia, this sounds consistent with that pain. She does have a musculoskeletal element to it. Given the positional nature I did check a CRP and echo to rule out pericarditis/effusion. These were all negative.
Status post TAVR: Apparently blood cultures were drawn as an outpatient no signs of infection today
Chronic issues as below.
Okay for discharge from a cardiovascular standpoint.
Original Note:
Today's Communication / Plan
-
check an echo and CT chest
check CRP, if elevated then will add Colchicine
Impression / Plan
-
Mrs. Henao is a�80-year-old woman with paroxysmal AF on Xarelto, diabetes, dyslipidemia, PPM Medtronic dual-chamber, acute/severe MR (s/p MVR 2020), and severe (s/p AVR Nov 2016), HLD�and prosthetic aortic valve stenosis and moderate to severe
tricuspid regurgitation, acute HF in the setting of critical . Dr. Arrieta referred [facility] Dr. Everardo Vernoica for ShortCut leaflet modification facilitated TAVR as both coronary arteries appear to be at high risk for
iatrogenic obstruction with TAVR.�She underwent TAVR with S3 20mm valve placed via right TF approach with leaflet modification with shortcut device (2 leaflets) on 09/03/2025.� She was seen in the office on 09/09/25 with c/o myalgias, denied any
chest pain or SOB/MATHIS. Outpatient labs were stable. She presents to the ER with c/o chest pain at rest and SOB with exertion. She called Dr. Veronica who recommended PO Lasix 20mg, which she took Monday and with improvement of her
chest pain, but no change in her SOB/MATHIS.
Drug Safety Specialist: Dr. Madison
see office visit 09/09/25 as consult note scanned into her chart.
SOB/MATHIS - acute.
- no improvement with Lasix at home.
- CXR w/o effusions, HF or PNA.
- check echo today.
- CT chest.
- check CRP and if elevated then will add Colchcine.
s/p TAVR - 09/03/[address] Veronica at [facility].
- echo 09/04/25 as below.
- check echo now.
- CT chest.
- CXR w/o abnormality.
PAF - stable in NSR on Xarelto.
PPM - MDT, stable with normal function.
MVR - 2020, stable.
Testing:
Echo 09/04/2025 showed dilated left ventricle with cLVH, EF 55-60%, dilated RV with normal function, mitral valve replacement with bioprosthesis appears well-seated without evidence of rocking motion, prosthetic leaflets are not well-visualized
there is mild mitral regurgitation. Status post valve in valve TAVR 30 mm FORD 3 ultra Resilia THV and 21 mm trifecta bioprosthesis on 09/03/2025, prosthesis appears well-seated without evidence of rocking motion leaflets are not well-visualized
there is no significant stenosis and no central regurgitation, no paravalvular regurgitation with peak/mean gradients 34/22 mmHg, incomplete TR jet envelope may underestimate PA systolic pressure of 43 mmHg, no significant pericardial effusion.
Physical Exam
Vital Signs/Labs
Vital Signs
Temp Pulse Resp BP Pulse Ox
97.8 F 76 18 140/80 95
09/12/25 10:33 09/12/25 15:00 09/12/25 15:00 09/12/25 15:00 09/12/25 15:00
09/11/25 09/12/25 09/13/25
06:59 06:59 06:59
Actual Weight 163 lb 12.855 oz
09/12/25 12:12
09/12/25 12:12
09/12/25
12:12
Uch-C-Ueyaoxbhwhg Pept 1170
Physical Exam
Constitutional: No acute distress
EENT: Anicteric and Moist mucous membranes
Cardiovascular: Rhythm & rate is regular
Respiratory: Respiratory effort normal and Other (very mild bibasilar rales)
GI: Soft, Non tender and Normal bowel sounds
Neuro/Psych: AO x 3
Other: Skin (warm, dry)
Data Reviewed
-
Date of Service: September 12, 2025
Medical Decision Making: External Notes
EKG: Tracing Personally Visualized and interpreted
Echo: Report Reviewed by me (09/04/25 as above)
Labs: Labs Reviewed by me
Old Records: Reviewed
[2025-09-12 16:11] LABS: C-Reactive Protein 5.60 mg/L (0.0-10.00)
[2025-09-12 17:52] LABS: Troponin I 0.027 ng/ml
--- NOTE | 2025-09-12 18:15 | HPS.HSE ---
Family Physician
-
Family Physician: John Hollis
Chief Complaint
-
Dyspnea
History of Present Illness
80-year-old female with history of paroxysmal atrial fibrillation on Xarelto, mitral valve replacement, recent TAVR on 05/03 in [facility] presents today with dyspnea and chest pain. Patient states that she tolerated the surgery well and
had no complications however 3 days ago she started dyspnea on exertion and chest pain which is centrally located. Pain is described as centrally located in the chest and nonradiating usually occurs after lunch or before dinner. She notes of
dyspnea on exertion while climbing up the stairs and the symptoms progressively worsened. She denies palpitations, weakness, orthopnea, PND, abdominal pain. She is asymptomatic now.
In the ED her vitals are stable, labs show troponin 0.027, proBNP 1170. CT chest is negative for PE, echocardiogram LVEF 57 % with patent bioprosthetic mitral and aortic valves, EKG is unremarkable, no acute change.
Medical History
Past Medical History
Past Medical History: Reports Other (paroxysmal atrial fibrillation on Xarelto diabetes dyslipidemia history of acute severe mitral regurgitation status post MVR in 2020, history of AVR in 2017 status post severe bioprosthetic )
Past Surgical History: Reports Orthopedic (knee replacement) and Other (as above )
Social History
Tobacco: Former Smoker
Alcohol: None
Drug: None
Personal:
Living: With Family
Employment: Retired
Family History
Family History: Not pertinent
Allergies / Home Medications
Allergies reflects when Allergies were last updated in [facility].
Home Medications with original date entered in [facility]
Allergy/Medication List:
Allergies
Allergy/AdvReac Type Severity Reaction Status Date / Time
No Known Allergies Allergy Verified 09/12/25 10:33
Home Medications
atorvastatin 40 mg tablet 40 mg PO QPM High cholesterol 01/18/18
cholecalciferol (vitamin D3) 25 mcg (1,000 unit) tablet 1,000 units PO DAILY Supplement 06/22/21
cartilage 40 mg-collagen II 10 mg-boron 5 mg-hyaluronate 3.3 mg tablet (Verix) 1 tab PO DAILY Supplement 01/16/24
ezetimibe 10 mg tablet (Zetia) 10 mg PO HS High Cholesterol 01/16/24
loteprednol etabonate 0.5 % eye gel drops (Lotemax) 1 drp RIGHT EYE BID Eye Condition 01/16/24
metoprolol tartrate 25 mg tablet 12.5 mg PO BID Blood Pressure 01/16/24
rivaroxaban 20 mg tablet (Xarelto) 20 mg PO HS Blood Clot Prevention/Tx 01/16/24
Lactobac no.2-Bifidobac no.1-S. thermo 112.5 billion cell capsule (Visbiome) 1 cap PO DAILY Gastrointestinal Issue ##0 06/12/25
multivitamin 1 tab PO DAILY Supplement 06/12/25
omega 1-lfh-aue-fish oil 1,000 mg (120 mg-180 mg) capsule (Fish Oil) 1 cap PO DAILY Supplement ##0 06/12/25
omeprazole 20 mg tablet,delayed release 20 mg PO DAILY Gastrointestinal Issue 06/12/25
melatonin 10 mg tablet 10 mg PO HSPRN PRN insomnia 06/13/25
diphenhydramine HCl 25 mg capsule (Benadryl) 25 mg PO HSPRN PRN sleep 08/15/25
tirzepatide 5 mg/0.5 mL subcutaneous pen injector (Mounjaro) 5 mg SC FR Diabetes 08/15/25
zolpidem 5 mg tablet (Ambien) 5 mg PO HSPRN PRN sleep 08/15/25
polyethylene glycol 3350 17 gram oral powder packet (Miralax) 8.5 g PO DAILY Constipation 08/16/25
furosemide 20 mg tablet (Lasix) 20 mg PO DAILYPRN PRN Weight gain 09/12/25
Review of Systems
-
History Source: Patient
A 12 point ROS was completed and negative except as noted: Yes
Physical Exam
Vital Signs
Vital Signs
Temp Pulse Resp BP Pulse Ox
97.8 F 76 18 140/80 95
09/12/25 10:33 09/12/25 15:00 09/12/25 15:00 09/12/25 15:00 09/12/25 15:00
Physical Exam
General: Comfortable and Conversant
HEENT: NormoCephalic and Anicteric
Respiratory: Clear
Cardiac: S1/S2 and Regular Rhythm
GI: Soft, Non Tender and Non Distended
Musculoskeletal: No Edema
Skin: Warm
Neuro: AO x 3
Hematologic/Lymphatic: No Lymphadenopathy
Psych: Calm
Laboratory Results
-
09/12/25 12:12
09/12/25 12:12
Laboratory Results
Total Bilirubin 0.8 mg/dl (0.2-1.3) 09/12/25 12:12
AST 24 U/L (14-36) 09/12/25 12:12
ALT 17 U/L (0-35) 09/12/25 12:12
Alkaline Phosphatase 78 U/L (38-126) 09/12/25 12:12
Troponin I 0.027 ng/ml 09/12/25 17:07
Data Reviewed
-
Diagnostic Radiology: Report Reviewed by me and Discussed with Physician
CT Scan: Report Reviewed by me and Discussed with Physician
Medical Tests (Nuc Med, Echo, EKG etc): Report Reviewed by me and Discussed with Physician
Lab Data: Labs Reviewed by me and Discussed with Physician
Impression/Plan
-
IMPRESSION:
Dyspnea on exertion in the setting of recent TAVR
Chest pain
History of mitral valve replacement
History of aortic valve replacement
History of paroxysmal atrial fibrillation
History of hyperlipidemia
Essential hypertension
Type 2 diabetes mellitus
History of insomnia
Chronic constipation
PLAN:
Dyspnea on exertion in the setting of recent TAVR 11/26/25
Differential diagnosis: Stable angina, cardiac emboli, PE, MT
Chest CT shows negative for PE
Normal troponin, EKG is unremarkable with no acute changes r/o MT
Echocardiogram shows left ventricular ejection fraction 57% with patent bioprosthetic valves, no leak
Admit patient for observation on telemetry
Vitals are stable.
Recent TAVR, patient is still at a high risk for cardiac embolization.
Continue Xarelto.
Vehicle Controls Engineer aware.
Monitor closely.
Chest pain
Non radiating, more centrally located, mild tenderness on palpation
Troponin are normal, EKG no acute changes.
Suspect GERD related, however still cannot completely r/o angina
Increase omeprazole to 40 mg daily.
Monitor closely for worsening symptoms.
History of paroxysmal atrial fibrillation
Normal sinus rhythm
Continue Xarelto, metoprolol to tartrate
History of hyperlipidemia
Continue atorvastatin and Zetia
Essential hypertension
Continue furosemide
Monitor blood pressure
Type 2 diabetes mellitus
Hold Mounjaro
Sliding scale
Check A1c
History of insomnia
continue melatonin and zolpidem
Chronic constipation
Continue MiraLAX
Senakot prn
Full code
Cholesterol-lowering diet
Xarelto
--- NOTE | 2025-09-12 18:45 | W.PN.UPDATE ---
Update Note
Progress Note Update
Attending note
Patient seen independently
I agree with the resident note.
History of Present Illness and initial presentation
80-year-old woman with history of:
paroxysmal atrial fibrillation on Xarelto,
mitral valve replacement,
recent TAVR on 05/03 in [facility]
presented with dyspnea and chest pain. The surgery well and had no complications however 3 days ago she started dyspnea on exertion and chest pain. Pain is centrally located in the chest and nonradiating Dyspnea on exertion while climbing up the
stairs and the symptoms progressively worsened. No palpitations, weakness, orthopnea, PND, abdominal pain. She is asymptomatic now.
vitals are stable,
troponin 0.027,
proBNP 1170.
CT chest is negative for PE,
echocardiogram LVEF 57 % with patent bioprosthetic mitral and aortic valves,
EKG is unremarkable
Past Medical History
paroxysmal atrial fibrillation on Xarelto
diabetes
dyslipidemia
history of acute severe mitral regurgitation status post MVR in 2020
history of AVR in 2017 status post bioprosthetic
knee replacement
Aortic stenosis
Pulm HTN
papillary muscle rupture
essential HTN
Physical Exam
General: Comfortable and Conversant
HEENT: NormoCephalic
Respiratory: Clear
Cardiac: S1/S2 and Regular Rhythm
GI: Soft, Non Tender and Non Distended
Skin: Warm
Neuro: AO x 3
Psych: Calm
IMPRESSION/Plan:
1. Dyspnea on exertion in the setting of recent TAVR 09/03/25 - resolved at rest
Differential diagnosis: Stable angina, cardiac emboli, PE, NH
Chest CT negative for PE
Normal troponin,
EKG is unremarkable with no acute changes r/o NH
Echocardiogram shows left ventricular ejection fraction 57% with patent bioprosthetic valves, no leak
Observation on telemetry
Continue Xarelto.
Patient Registration Specialist aware.
Monitor closely.
2. Chest pain - resolved for now
Non radiating, more centrally located, mild tenderness on palpation
Troponin are normal,
EKG no acute changes.
possible GERD related, but cannot completely r/o angina
Increase omeprazole to 40 mg daily.
Monitor closely, re-eval in am
3. History of paroxysmal atrial fibrillation - NSR now
Normal sinus rhythm
Continue Xarelto, metoprolol
Please see resident note for details on
History of hyperlipidemia
Essential hypertension
Type 2 diabetes mellitus
History of insomnia
Chronic constipation
Full code
Xarelto for dvtp
--- NOTE | 2025-09-12 20:15 | PTCARENOTE ---
Received patient from ED via stretcher. Patient ambulated from stretcher to bed with minimal assistance. AAOx3, no current complaints of pain. Oriented patient to room and placed call perez within reach.
[2025-09-12 20:33] LABS: Glucose - Point of Care 156 mg/dl (70-99)
[2025-09-12 20:45] LABS: Magnesium 2.1 mg/dl (1.6-2.3)
[2025-09-12] MEDS: LOPRESSOR 12.5 MG PO (20:51)
[2025-09-12] MEDS: XARELTO 20 MG PO (20:52)
[2025-09-12] MEDS: ZETIA 10 MG PO (20:53)
[2025-09-12] MEDS: PROTONIX 40 MG PO (20:54)
[2025-09-12] MEDS: AMBIEN 5 MG PO (23:06)
[2025-09-12 23:58] LABS: Magnesium 2.2 mg/dl (1.6-2.3)
[2025-09-13 00:17] LABS: Troponin I 0.034 ng/ml
[2025-09-13 03:17] VITALS: BP 102/58
[2025-09-13] MEDS: VITAMIN D3 (cholecalciferol) 25 MCG PO (07:38)
[2025-09-13] MEDS: THERAGRAN 1 TABLET PO (07:38)
[2025-09-13] MEDS: LOPRESSOR 12.5 MG PO (07:39)
[2025-09-13] MEDS: PROTONIX 40 MG PO (07:39)
[2025-09-13] MEDS: MIRALAX 8.5 GRAMS PO (07:39)
[2025-09-13] MEDS: VISBIOME 1 CAP PO (07:40)
[2025-09-13 07:45] LABS: Hematocrit 36.6 % (37.0-47.0); Hemoglobin 11.7 g/dL (12.0-16.0); Mean Corp Hgb Conc. 32.0 g/dL (33.0-37.0); Mean Corpuscular Volume 94.6 fL (81.0-99.0); Nucleated Red Blood Cells % 0 %; Platelet Count 157 10^3/uL (130-400); Red Cell Dist. Width 15.0 % (11.5-14.5)
[2025-09-13 07:51] VITALS: BP 120/61
[2025-09-13 08:01] LABS: Glucose - Point of Care 108 mg/dl (70-99)
[2025-09-13 08:05] LABS: Troponin I 0.024 ng/ml
[2025-09-13 08:19] LABS: Blood Urea Nitrogen 19 mg/dl (7-17); Calcium 9.0 mg/dl (8.4-10.2); Carbon Dioxide 30 mmol/L (22-30); Chloride 102 mmol/L (98-107); Estimated Creatinine Clearance 73 ml/min; Glucose 89 mg/dl (70-99); Potassium 3.7 mmol/L (3.5-5.1); Sodium 136 mmol/L (135-145); eGFR > 60.00
--- NOTE | 2025-09-13 09:01 | W.PN.CD ---
Addendum entered and electronically signed by Sena Santiago MD 09/13/25 12:13:
Patient seen and evaluated personally. I agree with the note, plan of care and documentation as noted below. I discussed patient's case with involved healthcare providers including primary hospitalist.
74-year-old woman, with paroxysmal A-fib, DM, HPL, Medtronic PPM, severe MR status post MVR 2020, severe s/p AVR 11/2016, with prosthetic aortic stenosis s/p shortcut leaflet modified TAVR at [facility] on 09/03/2025. Patient was hospitalized
with chest pain and shortness of breath. Patient was observed clinically and serial troponins were done without showing any change in troponin leak. Patient remained stable and can be discharged home today.
Original Note:
Today's Communication / Plan
-
No changes to medical therapy.
No complaints this morning.
Telemetry without arrythmias.
Impression / Plan
-
Mrs. Henao is a�80-year-old woman with paroxysmal AF on Xarelto, diabetes, dyslipidemia, PPM Medtronic dual-chamber, acute/severe MR (s/p MVR 2020), and severe (s/p AVR Nov 2016), HLD�and prosthetic aortic valve stenosis and moderate to severe
tricuspid regurgitation, acute HF in the setting of critical . Dr. Arrieta referred [facility] Dr. Everardo Veronica for ShortCut leaflet modification facilitated TAVR as both coronary arteries appear to be at high risk for
iatrogenic obstruction with TAVR.�She underwent TAVR with S3 20mm valve placed via right TF approach with leaflet modification with shortcut device (2 leaflets) on 09/03/2025.� She was seen in the office on 09/09/25 with c/o myalgias, denied any
chest pain or SOB/MATHIS. Outpatient labs were stable. She presents to the ER with c/o chest pain at rest and SOB with exertion. She called Dr. Veronica who recommended PO Lasix 20mg, which she took Monday and with improvement of her
chest pain, but no change in her SOB/MATHIS.
Natural Developer: Dr. Madison
SOB/MATHIS - acute
- No improvement with Lasix at home.
- CT without PE
- CXR w/o effusions, HF or PNA.
- Echo without effusion
- CRP 5.60
s/p TAVR - 09/03/[address] Veronica at [facility].
- Echo stable
- CT chest without acute findings
- CXR w/o abnormality.
- Dr. Veronica recommended she stay to trend troponin (particular procedure she had has a high risk of coronary artery embolization), troponins flat
PAF - stable in NSR on Xarelto.
PPM - MDT, stable with normal function.
MVR - 2020, stable.
SUBJECTIVE:
Feeling well.
Testing:
Echo 09/04/2025 showed dilated left ventricle with cLVH, EF 55-60%, dilated RV with normal function, mitral valve replacement with bioprosthesis appears well-seated without evidence of rocking motion, prosthetic leaflets are not well-visualized
there is mild mitral regurgitation. Status post valve in valve TAVR 30 mm FORD 3 ultra Resilia THV and 21 mm trifecta bioprosthesis on 09/03/2025, prosthesis appears well-seated without evidence of rocking motion leaflets are not well-visualized
there is no significant stenosis and no central regurgitation, no paravalvular regurgitation with peak/mean gradients 34/22 mmHg, incomplete TR jet envelope may underestimate PA systolic pressure of 43 mmHg, no significant pericardial effusion.
Physical Exam
Vital Signs/Labs
Vital Signs
Temp Pulse Resp BP Pulse Ox
97.8 F 69 18 120/61 94
09/13/25 07:51 09/13/25 07:51 09/13/25 07:51 09/13/25 07:51 09/13/25 07:51
09/12/25 09/13/25 09/14/25
06:59 06:59 06:59
Actual Weight 156 lb 8 oz
09/13/25 06:20
09/13/25 06:20
Magnesium 2.2 mg/dl (1.6-2.3) 09/12/25 23:25
09/12/25
12:12
Vyt-L-Yszfwmdxnqe Pept 1170
LAB Results
09/12/25 09/12/25 09/13/25
17:07 23:25 06:20
Troponin I 0.027 0.034 D 0.024 D
Physical Exam
Constitutional: No acute distress and Comfortable
EENT: Anicteric and Moist mucous membranes
Cardiovascular: Rhythm & rate is regular and Pedal edema is absent
Respiratory: Respiratory effort normal and Lungs clear to auscul.
GI: Soft, Distention absent, Flat, Non tender and Normal bowel sounds
Neuro/Psych: AO x 3
Other: Skin (warm and dry without edema)
Data Reviewed
-
Date of Service: September 13, 2025
Labs: Labs Reviewed by me
Old Records: Reviewed
[2025-09-13] MEDS: FLUZONE HIGH-DOSE 2025-26 0.5 ML IM (11:11)
[2025-09-13 11:24] VITALS: BP 121/66
--- NOTE | 2025-09-13 11:27 | CM ---
I.A: Completed By SÁNCHEZ Petersen
Patient lives with in a [address] with 2 STI and 12 STI. DME: None
PCP: Dr. John Bazzi
Pharm: [facility]
Patient has transport home. IBRAHIM letter signed. Patient discharging home no needs. PLAN: Home No Needs.
--- NOTE | 2025-09-13 13:17 | W.DCSUMMARY ---
Discharge Summary
Discharge Data
Date of Admission: 09/12/25
Date of Discharge: 09/13/25
-
Pending Results: No
Hospital Course
80-year-old female with history of paroxysmal atrial fibrillation on Xarelto, mitral valve replacement, recent TAVR on 05/03 in [facility]
Presented with chest pain at rest and shortness of breath with exertion. Outpatient sanitation supervisor recommended p.o. Lasix 20 mg which helped with the chest discomfort however continued to have ongoing shortness of breath dyspnea on exertion. Was
recommended to trend troponins which have remained negative. As cardiology did not have any other additional recommendations was discharged home with recommendations to follow-up with outpatient cardiology
Call Dr. Everardo Veronica to make an appointment next week.
Seen and examined the day of discharge which was 09/13/2025. No new complaints. No acute overnight events.
NAD
Scleral Anicteric
MMM
No JVD
CTABL
RRR, S1/S2,ANA at RUSB
Soft, NT, ND, BS+
Warm, Dry
More than 30 minutes spent in discharge including
Final examination of the patient
Summarizing hospital stay
Instructions for continuing care to all relevant caregivers
Preparation of discharge records, prescriptions, and referral forms
Total time spent (in minutes): 33mins
Discharge Plan
-
Patient Disposition: Home (Routine Discharge)
Discharge Diagnosis/Procedures: Chest pain
Condition: Fair
Diet: As tolerated, Low Fat, Low Cholesterol, 2 Gram Sodium and No added salt
Other Services: Cardiac Rehab
Activity Restrictions/Additional Instructions:
Presented with chest pain at rest and shortness of breath with exertion. Outpatient sanitation supervisor recommended p.o. Lasix 20 mg which helped with the chest discomfort however continued to have ongoing shortness of breath dyspnea on exertion. Was
recommended to trend troponins which have remained negative. As cardiology did not have any other additional recommendations was discharged home with recommendations to follow-up with outpatient cardiology
Call Dr. Everardo Veronica to make an appointment next week.
Referrals:
John Hollis MD [Family Provider, Family Practice]
Mckenzie Madisno MD [Active, Cardiology] - 10/21/25 9:40 am
Prescriptions:
Continued
atorvastatin 40 MG tablet
40 mg PO QPM
cholecalciferol (vitamin D3) 1,000 UNITS tablet
1,000 units PO DAILY
ezetimibe [Zetia] 10 mg Tablet
10 mg PO HS
Xarelto 20 mg Tablet
20 mg PO HS
loteprednol etabonate [Lotemax] 0.5 % Drops,Gel
1 drp RIGHT EYE BID
[facility] 40-10-5-3.3 mg Tablet
1 tab PO DAILY
metoprolol tartrate 12.5 MG tablet
12.5 mg PO BID
multivitamin Tablet
1 tab PO DAILY
Visbiome 112.5 billion cell Capsule
1 cap PO DAILY Qty: 0
omeprazole 20 mg Tablet,Delayed Release (Dr/Ec)
20 mg PO DAILY
omega 8-nhi-iuf-fish oil [Fish Oil] 1,000 (120-180) mg Capsule
1 cap PO DAILY Qty: 0
melatonin 10 mg Tablet
10 mg PO HSPRN PRN (Reason: insomnia)
diphenhydramine HCl [Benadryl] 25 mg Capsule
25 mg PO HSPRN PRN (Reason: sleep)
Mounjaro 5 mg/0.5 mL Pen Injector
5 mg SC FR
zolpidem [Ambien] 5 mg Tablet
5 mg PO HSPRN PRN (Reason: sleep)
polyethylene glycol 3350 [Miralax] 17 gram Powder In Packet
8.5 g PO DAILY
Rx Instructions:
1/2 cap full daily
furosemide [Lasix] 20 mg tablet
20 mg PO DAILYPRN PRN (Reason: Weight gain)
Discharge Orders:
Discharge Patient (As Directed); Ordered 09/13/25
Ordered By: Baltazar Gao
Discharge Date and Time
Discharge Date/Time: 09/13/25 11:52
Print Language: SWAZI
== END 2025-09-13 11:52 | disposition home or self-care (01) ==
LOC: 4 EAST ACU 19:02
PROVIDERS: Physician Assistant; Student in an Organized Health Care Education/Training Program; ADMITTING PHYSICIAN Internal Medicine; ATTENDING PHYSICIAN Hospitalist; CONSULT PHYSICIAN Internal Medicine Cardiovascular Disease; EMERGENCY PHYSICIAN Student in an Organized Health Care Education/Training Program; FAMILY PHYSICIAN Family Medicine
DX: R07.89 Other chest pain (principal); E11.9 Type 2 diabetes mellitus without complications; I48.0 Paroxysmal atrial fibrillation; Z95.0 Presence of cardiac pacemaker; E78.5 Hyperlipidemia, unspecified; I27.20 Pulmonary hypertension, unspecified; I50.9 Heart failure, unspecified; Z23 Encounter for immunization; Z79.01 Long term (current) use of anticoagulants; Z87.891 Personal history of nicotine dependence; I11.0 Hypertensive heart disease with heart failure; I08.3 Combined rheumatic disorders of mitral, aortic and tricuspid valves; Z11.52 Encounter for screening for COVID-19; Z79.899 Other long term (current) drug therapy
CPT/HCPCS: 71046; 71275; 80048; 80053; 82962; 83735; 83880; 84484; 85025; 86140; 87070; 87502; 87811; 90662; 93005; 93306; 99285; G0008; G0378; Q9967